=== PATIENT | male | born 1950 | race Caucasian/White ===

== ENCOUNTER 2016-05-20 08:40 | Inpatient (IN) | payer OTHER ==
[~2016-05-20 08:40] MED LIST: Buffered Lidocaine 1% SYR 3ML* 3 ML/SYR SYRINGE INTRADERM ONE
[2016-05-20] MEDS ORDERED: ceFAZolin 2 GM PREMIX (*) 2 GM/50 ML BAG IVPB ONE (09:18)
[2016-05-20] MEDS ORDERED: Famotidine IV* 10 MG/ML 2 ML (20 mg) ONE (11:42)
[2016-05-20] MEDS ORDERED: Midazolam* 1 MG/ML 5 ML VIAL (5 MG) ONE (11:42)
[2016-05-20] MEDS ORDERED: Bupivacaine 0.5% SDV PF* 30 ML VIAL ONE (11:49)
[2016-05-20] MEDS ORDERED: Morphine PF AMP (0.5MG/ML)* 5 MG/10 ML AMP ONE (11:49)
[2016-05-20] MEDS ORDERED: fentaNYL* 50 MCG/ML 2 ML VIAL (100 MCG VIAL) ONE (11:49)
[2016-05-20] MEDS ORDERED: Dexmedetomidine* 200 MCG/2 ML 2 ML VIAL ONE (12:05)
[2016-05-20] MEDS ORDERED: Ketorolac INJ* 30 MG/ML 1 ML VIAL ONE (12:10)
[2016-05-20] MEDS ORDERED: Dexamethasone IV* 4 MG/ML 1 ML (4 MG) ONE (12:10)
[2016-05-20] MEDS ORDERED: Midazolam* 1 MG/ML 2 ML VIAL (2 MG) ONE ×2 (12:11→13:02)
[2016-05-20] MEDS ORDERED: fentaNYL* 50 MCG/ML 2 ML VIAL (100 MCG VIAL) IV PRN (12:41)
[2016-05-20] MEDS ORDERED: DiMENhydriNATE IV* 50 MG/ML VIAL IV PUSH PRN (12:41)
[2016-05-20] MEDS ORDERED: Naloxone* 0.4 MG/ML 1 ML VIAL IV PRN (12:42)
[2016-05-20] MEDS ORDERED: oxyCODONE/Acetamin 5/325 MG* TAB PO PRN ×2 (12:42)
[2016-05-20] MEDS ORDERED: diPHENhydraMINE IV* 50 MG/ML 1 ml VIAL (BENADRYL) IV PRN (12:42)
[2016-05-20] MEDS ORDERED: Ondansetron INJ* 2 MG/ML VIAL IV PRN (12:42)
[2016-05-20] MEDS ORDERED: PROCHLORPERAZINE INJ 5 MG/ML 2 ML VIAL IV PRN (12:42)
[2016-05-20] MEDS ORDERED: Ketorolac INJ* 30 MG/ML 1 ML VIAL IV PRN (12:42)
[2016-05-20] MEDS ORDERED: diPHENhydraMINE PO* 25 MG PO PRN (14:27)
[2016-05-20] MEDS ORDERED: Magnesium Hydroxide LIQ* 30 ML UDC PO PRN (14:27)
[2016-05-20] MEDS ORDERED: Bisacodyl SUPP* 10 MG SUPP PR PRN (14:27)
--- NOTE | 2016-05-20 15:21 | RAD ---
INDICATION: Left total knee replacement COMPARISON: April 22, 2016 TECHNIQUE: Portable AP and lateral views were obtained. FINDINGS: There is left knee arthroplasty. Both femoral and tibial components appear well seated. There is a surgical drain in place. There is a cooling jacket. IMPRESSION: POSTOP LEFT KNEE ARTHROPLASTY. NO FINDINGS OF HARDWARE FAILURE
[2016-05-20] MEDS ORDERED: Nalbuphine* 20 MG/ML 1 ML VIAL ONE (16:25)
[2016-05-20] MEDS: Nalbuphine* 20 MG/ML 1 ML VIAL IV PRN ×2 (16:26→20:04)
[2016-05-20] MEDS: Scopolamine 1.5 mg* PATCH TRANSDERM SCH (17:54)
[2016-05-20] MEDS: Acetaminophen TAB* 325 MG PO SCH ×3 (17:54→22:03)
[2016-05-20] MEDS: ceFAZolin 1 GM in Dextrose (*) 1 GM/50 ML BAG IVPB SCH ×2 (17:57→20:06)
[2016-05-20] MEDS: Metoprolol Succinate XL TAB* 25 MG PO SCH (17:57)
[2016-05-20] MEDS ORDERED: NON FORMULARY MED* (Lisinopril [Lisinopril 2.5 Mg-] 2.5 MG) PO SCH (18:00)
[2016-05-20] MEDS ORDERED: Metoprolol Succinate XL TAB* 25 MG PO SCH (18:00)
[2016-05-20] MEDS ORDERED: Warfarin TAB(*) 6 MG PO ONE (19:30)
--- NOTE | 2016-05-20 21:49 | CONS ---
CONSULTATION REPORT:* ADDENDUM: DATE OF CONSULTATION: 05/20/16 Mr. Brito is a 66-year-old male with history of paroxysmal atrial fibrillation and hypertension who is status post elective knee replacement. Our service was asked to consult in regards to medical management of the above mentioned chronic conditions. For further details of the patient's presentation and plan, please see consultation report dictated by Iesha Black NP, on 05/20/16 with which I agree. [id number]/[facility] #: [id number] [place]
[2016-05-20] MEDS: Docusate CAP* 100 MG PO SCH (22:02)
--- NOTE | 2016-05-20 22:14 | CONS ---
ATTENDING PHYSICIAN ADDENDUM INCLUDED ON THIS REPORT CONSULTATION NOTE: DATE OF CONSULT: 05/20/16 ATTENDING PHYSICIAN: Kenzie Grant MD *(dictated by Iesha Burns NP) PRIMARY CARE PROVIDER: Dr. Gabe Phillip. REQUESTING PHYSICIAN: Fiordaliza Whiteside MD. REASON FOR CONSULT: Co-medical management. HISTORY OF PRESENT ILLNESS: Mr. Brito is a 66-year-old male with a past medical history significant for hypertension, coronary artery disease, mitral valve disorder, paroxysmal atrial fibrillation, non-ischemic cardiomyopathy, obstructive sleep apnea, hyperlipidemia, ectopic atrial bradycardia, and osteoarthritis who presents today for an elective left total knee replacement with Dr. Whiteside. Postoperatively, the patient is doing well. He has been in sinus bradycardia postoperative, with a rate in the 40-60s. He denies any pain , nausea or vomiting. The patient denies any recent cold symptoms, fever, chills, chest discomfort or shortness of breath. The patient states that leading up to his surgery he has been in good state of health except for right knee pain. Hospitalist were asked to assist with co-medical management of this patient during his postoperative period. PAST MEDICAL HISTORY: 1. Hypertension. 2. Coronary artery disease. 3. Mitral valve disorder. 4. Lumbar disk herniations. 5. Nonischemic cardiomyopathy. 6. Paroxysmal atrial fibrillation. 7. Chronic back pain. 8. Kidney stones. 9. Gallstones. 10. Ectopic atrial bradycardia. 11. Hyperlipidemia. 12. Obstructive sleep apnea. PAST SURGICAL HISTORY: 1. Status post left ACL repair in 1982. 2. Status post left ACL reconstruction in 2008. 3. Status post mitral valve replacement and ASD closure in 1998. 4. Status post lumbar diskectomy in 2013. HOME MEDICATIONS: Include: 1. Lisinopril 2.5 mg oral daily at bedtime. 2. Metoprolol succinate 25 mg oral every evening. 3. Vicodin ES 7.5/650 oral every 4 hours as needed for pain. 4. Acetaminophen 325 mg oral as needed for pain. 5. Naproxen 250 mg oral every 8 hours as needed for pain. ALLERGIES: 1. VITAMIN B. 2. NIACIN. FAMILY HISTORY: The patient's father has a history of heart disease, hypertension and CVA. He has a sister with a history of multiple sclerosis. The patient denies any family history of diabetes mellitus or cancer. SOCIAL HISTORY: The patient lives alone. 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 The patient denies tobacco use, although he is a former smoker quitting over 25 years ago. The patient denies recreational drug use. The patient reports drinking 1 to 2 alcoholic beverages daily. The patient's step-daughter, Laura Izquierdo, will be his surrogate decision maker in the event that he is unable to make decisions for himself. REVIEW OF SYSTEMS: I performed a 14-point review of systems. All the pertinent positives and negatives are mentioned in the history of present illness. The remaining review of systems is negative. PHYSICAL EXAMINATION: Vital Signs: Temperature 97.5, heart rate 67, O2 sat 96 % on 3 L via nasal cannula, blood pressure 100/70. General Appearance: The patient is alert and appears to be in no acute distress. HEENT: Normocephalic and atraumatic. Pupils are equal and reactive to light. Extraocular movements are intact. Cardiovascular: Regular rate and rhythm. S1 and S2 present. There was a soft systolic murmur heard best at the apex. Extremities: There is no lower extremity edema. DP and PT pulses are 2+ and symmetric. Respiratory: There is no accessory muscle use and the lungs are clear to auscultation bilaterally. Abdomen: Soft, nontender and nondistended. There are bowel sounds present x4. Musculoskeletal: There is no clubbing or cyanosis noted. The patient exhibits good strength in all extremities. Skin: The patient has a dressing on his left knee that is clean, dry and intact. Neurological: Cranial nerves II through XII are grossly intact. The patient moves all extremities. Psychological: The patient is calm and cooperative. DIAGNOSTIC STUDIES/LAB DATA: Preoperative labs from 05/14/16: Sodium 143, potassium 4.7, chloride 103, CO2 of 27, BUN 19, creatinine 0.90, glucose 87. White blood cell count 5.3, hemoglobin 15.5, hematocrit 45.7, and platelet count 257. EKG preop from 05/11/16 shows a sinus bradycardia with nonspecific ST changes. The patient had a preop chest x-ray on 05/13/16 showing no active cardiopulmonary disease. The patient's LFTs were within normal limits. The patient has a negative urinalysis. A left knee x-ray from today. Radiologist's impression: Postop left knee arthroplasty. No findings of hardware failure. IMPRESSION: Mr. Brito is a 66-year-old male with a past medical history significant for nonischemic cardiomyopathy, hypertension, ectopic atrial bradycardia, paroxysmal atrial fibrillation, nonischemic cardiomyopathy and osteoarthritis who underwent an elective left total knee arthroplasty with Dr. Whiteside. Hospitalists were asked to assist with co-management of this patient during his hospitalization. 1. Status post left total knee arthroplasty. Postop day. Management will be per Orthopedic Surgery. The patient will have pain medication and started on a bowel regime. The patient's hemoglobin and hematocrit will be trended. The patient will have physical therapy and occupational therapy. 2. History of ectopic atrial bradycardia. The patient has intermittently been bradycardic during his stay with heart rates in the 40s to 70s. The patient will be continued on his metoprolol with holding parameters. We will continue to monitor this. 3. Nonischemic cardiomyopathy and history of paroxysmal atrial fibrillation. The patient will be continued on his metoprolol with holding parameters. He was not anticoagulated for his paroxysmal atrial fibrillation prior to surgery. 4. Hypertension. We will continue the patient on his metoprolol and hold his lisinopril now during his perioperative period as his blood pressures are soft. We will resume his lisinopril when his blood pressures are back up. 5. Fluids, electrolytes and nutrition. The patient will be on a regular diet. 6. DVT prophylaxis. The patient will be on warfarin and Lovenox per Orthopedic Surgery. 7. Code status. Full code. 8. Disposition. Disposition per Orthopedic Surgery. TIME SPENT: The time for this consultation was 60 minutes, 30 minutes was spent with the patient discussing medications, past medical history and the events leading up to his arrival and performing a physical examination. The case has been reviewed with the attending, Dr. Grant, who agrees with the plan of care. Reviewed by JAKUB MARRERO 05/21/16 0906 ADDENDUM: DATE OF CONSULTATION: 05/20/16 Mr. Brito is a 66-year-old male with history of paroxysmal atrial fibrillation and hypertension who is status post elective knee replacement. Our service was asked to consult in regards to medical management of the above mentioned chronic conditions. For further details of the patient's presentation and plan, please see consultation report dictated by Iesha Burns NP, on 05/20/16 with which I agree. KENZIE GRANT MD CC: Fiordaliza Whiteside MD; Dr. Phillip * [id number]/[facility] #: [id number]/[facility] #: [id number] [facility]
[2016-05-21] MEDS: Acetaminophen TAB* 325 MG PO SCH (01:08)
--- NOTE | 2016-05-21 03:33 | OP ---
DATE OF OPERATION: 05/20/16 - ROOM #343 DATE OF : 46 SURGEON: Fiordaliza Whiteside MD ASSISTANTS: 1. RENUKA Sims 2. RENUKA Lynn ANESTHESIOLOGIST: Dr. Bonilla. ANESTHESIA: Spinal. PRE-OP DIAGNOSIS: Severe end-stage degenerative osteoarthritis of the left knee joint. POST-OP DIAGNOSIS: Severe end-stage degenerative osteoarthritis of the left knee joint. OPERATIVE PROCEDURE: Left total knee arthroplasty. COMPLICATIONS: None. ESTIMATED BLOOD LOSS: 350 cc. TOURNIQUET TIME: 53 minutes. HARDWARE USED: This is a Jimenez and Nephew cemented total knee arthroplasty hardware with 2 packages of Simplex bone cement. For the femur, a size 7 left Oxinium Legion femoral component. For the baseplate, a size 7 left tibial base plate. For the patella, a 35 mm 3-peg all poly patella. For the insert, a 9- mm size 70 posterior stabilized articular insert. BRIEF HISTORY/INDICATION: Mr. Brito is a 66-year-old gentleman with months of severe left knee pain. He failed conservative treatment with anti- inflammatories, pain medication, intra-articular injections, and physical therapy. Radiographs confirmed [id number] arthritis. Due to continued pain and decreased quality of life, the patient elected to undergo a left total knee arthroplasty. Informed consent was obtained from the patient. He understood the risks of surgery included, but were not limited to bleeding, infection, damage to nearby structures, continued pain, need for further surgery, intraoperative fracture, nerve palsy, hardware failure or loosening, stroke, heart attack, blood clot, and . He wished to proceed. INTRAOPERATIVE FINDINGS: Intraoperatively, the patient was noted to have 7- degree valgus deformity preoperatively. This was corrected to 5 degrees at the end of the case. He had a lateral femoral condylar hypoplasia. He had complete loss of cartilage in the lateral and patellofemoral compartments. DESCRIPTION OF PROCEDURE: Mr. Brito was identified in the preanesthesia unit. His left lower extremity was marked as the correct operative side. Informed consent was signed and placed in the chart. The patient was taken to the operating room and placed under spinal anesthesia without difficulty. Olivarez catheter was placed. Tourniquet was placed on the left thigh. Left lower extremity was prepped and dapped in the usual sterile fashion. Preop time -out was made to correctly identify the patient's side and site. Appropriate perioperative antibiotics were given within 1 hour of incision. Tourniquet was inflated and total tourniquet time for this procedure was 53 minutes. A 12-cm midline incision was made with a 10 blade and carried down to the extensor mechanism. A new 10-blade was used to make a standard medial parapatellar arthrotomy. Patella was subluxed laterally. Electrocautery was used to subperiosteally elevate soft tissue along the superomedial tibia to mid sagittal plane. The knee was flexed up. A drill was used to enter the distal femur. Intramedullary distal femoral cutting guide was pinned into proper position. Hypoplasia of the lateral femoral condyle as noted. Oscillating saw was used to make the appropriate distal femoral cut. Next, the external rotation guide was placed on the distal femur. Femur was sized to a size 7. Size 7 multi-cutting jig was pinned on the distal femur. Oscillating saw was used to make the appropriate Chamfer cuts. All bony fragments were carefully removed. PCL was completely released. The tibia was subluxed anteriorly. Extramedullary tibial cutting guide was placed, was pinned into proper position. Oscillating saw was used to make the appropriate proximal tibial cut. The bone was carefully removed. Knee was brought out into full extension. The spacer block had excellent fit. Good medial and lateral ligamentous balancing. Full extension of the knee. Flexion and extension gaps were well balanced. The knee was flexed up. Lamina management developer was placed both medially and laterally. Any remaining meniscus was removed from the medial and lateral compartments. Curved osteotome was used to remove any osteophytes from the posterior femoral condyles. Next, a size 7 left femoral trial was placed. This was impacted into position on the distal femur and had good fit. The box for the posterior stabilized implant was prepared using a reamer and box cut osteotome. A size 7 tibial trial and 9-mm insert trial were chosen. These were placed and the knee was taken through a range of motion. The knee had full extension to 130 degrees of flexion with good patellofemoral tracking. Patellar was everted. 9-mm of patellar bone and cartilage was carefully removed with an oscillating saw. The patella was sized to a size 35. Three peg holes were drilled through the size 35 guide. A 35 trial patella was placed. The knee was taken through a range of motion and had excellent patellofemoral tracking. All trials were carefully removed. Tibia was subluxed anteriorly and sized to a size 7. Proximal tibia was prepared using a keel punch. All bony cut surfaces were copiously irrigated with sterile saline and dried. The final implants were cemented into place starting with the tibia followed by the femur and last the patella. A 9-mm insert trial was chosen and placed while the knee was brought into full extension. The cement was allowed to fully cure and the tourniquet was turned down at 53 minutes. The knee was copiously irrigated with sterile saline. Once the cement was fully cured, the insert trial was removed. Capsule was checked for any bleeding. Meticulous hemostasis was obtained using electrocautery. Any excess cement was carefully removed. Final insert chosen was a 9-mm posterior stabilized articular insert size 7/8. This was locked into position on the tibial tray without difficulty. Stability of the insert on the tibial tray was checked and rechecked and noted to be stable. Final range of motion was full extension to 130 degrees of flexion. The knee was once again copiously irrigated with sterile saline. The extensor mechanism was closed in an interrupted fashion using #1 Vicryl over a medium Hemovac drain. The rest of the incision was closed in a layered fashion using 0 and 2-0 Vicryl. Skin was closed using running 3-0 nylon suture. Sterile Xeroform, 4x4s, and Webril were used to cover the incision. Ivan wrap and cold pack were placed over this. The patient's anesthesia was reversed without difficulty. He was taken to the PACU in stable condition. Intended weightbearing will be weightbearing as tolerated. Intended DVT prophylaxis will be Coumadin with a Lovenox bridge. [id number]/[facility] #: [id number] [facility]
[2016-05-21] MEDS ORDERED: oxyCODONE TAB* 5 MG TAB PO PRN (03:53)
[2016-05-21] MEDS ORDERED: Ondansetron TAB* 4 MG PO PRN (03:53)
[2016-05-21] MEDS: ceFAZolin 1 GM in Dextrose (*) 1 GM/50 ML BAG IVPB SCH ×2 (03:59→12:07)
[2016-05-21 07:12] LABS: Hematocrit 35 % (42-52); Hemoglobin 11.8 g/dl (14.0-18.0)
[2016-05-21 07:29] LABS: BUN/Creatinine Ratio 28.4 (8-20); Calcium 8.4 mg/dL (8.6-10.3); EGFR African American 121.9 (>60); EGFR Non-African American 94.8 (>60); Potassium 4.2 mmol/L (3.5-5.0)
[2016-05-21] MEDS: Ondansetron INJ* 2 MG/ML VIAL IV PRN (08:05)
[2016-05-21] MEDS: Docusate CAP* 100 MG PO SCH ×2 (09:11→21:00)
[2016-05-21] MEDS: Vitamin THERAPEUTIC TAB PO SCH (09:11)
[2016-05-21] MEDS: OXYMETAZOLINE 0.05% BOTH NARES SCH ×2 (09:13→22:02)
[2016-05-21] MEDS: HYDROcodone/ACETAMIN 5-325 MG* 1 TAB PO PRN ×2 (12:28→17:58)
--- NOTE | 2016-05-21 12:38 | PN ---
Progress Note - Progress Note SOAP: Subjective: [66 year old male s/p L TKA 05/20/2016. Patient reports feeling overall "lowsey " due to mild nausea, fatigue. Pain controlled with agustin medication, howeer patient believes nausea/ foggy head due to pain medication. VSS overnight, H& H stable. No other complaints/ concerns. ] Objective: [GEneral- Resting in chair comfortably, A&O MSK- SUrgical dressing intact, drain intact, no drainage seen on dressing, drain with bloody drainage noted. Drain pulled without complication, minimal pain to patient, none at end of procedure, tolerated well. + dorsi/ plantarflexion b/l, PT 2+ b/l, neg homans sign b/l, sensation intact to light touch B/L. ] Vital Signs Temp 97.5 F 05/21/16 07:08 Pulse 64 05/21/16 07:08 Resp 18 05/21/16 12:28 BP 108/60 05/21/16 07:08 Pulse Ox 95 05/21/16 08:00 Intake & Output 05/20/16 05/21/16 05/21/16 18:59 06:59 18:59 Intake Total 2310 1920 Output Total 50 475 Balance 2260 1445 Weight 205 lb Intake: IV Fluids 1900 990 LR 1900 990 IVPB 110 ABX - CEFAZOLIN 110 Oral 410 820 Output: Olivarez 50 475 Other: # Bowel Movements 0 Laboratory Results - last 24 hr 05/21/16 05/21/16 05/21/16 06:46 06:46 06:46 Hgb 11.8 L Hct 35 L INR (Anticoag Therapy) 1.11 Sodium 135 Potassium 4.2 Chloride 102 Carbon Dioxide 29 Anion Gap 4 BUN 23 Creatinine 0.81 Est GFR ( Amer) 121.9 Est GFR (Non-Af Amer) 94.8 BUN/Creatinine Ratio 28.4 H Glucose 130 H Calcium 8.4 L Assessment: [[66 year old male s/p L TKA ] Plan: [- DVT prophy- continue lovenox, coumadin dosed to 6mg - Continue PT/ OT - Pain medication changed to [place], Ultram ] Active Medications Generic Name Dose Route Start Last Admin Trade Name Freq PRN Reason Stop Dose Admin Acetaminophen/Hydrocodone Bitart 1 tab 05/21/16 09:05 05/21/16 12:28 [place] 5-325 Tab* PO 1 tab Q4H PRN Administration PAIN - MODERATE Bisacodyl 10 mg 05/20/16 14:27 Dulcolax Supp* [place] DAILY PRN constipation Diphenhydramine HCl 25 mg 05/20/16 14:27 Benadryl Po* PO Q6H PRN itching Docusate Sodium 100 mg 05/20/16 21:00 05/21/16 09:11 Colace Cap* PO 100 mg BID LAURI Administration Enoxaparin Sodium 40 mg 05/21/16 15:00 Lovenox(*) SUBCUT Q24H [facility] Lactated Ringer's 1,000 mls @ 100 mls/hr 05/20/16 15:00 05/21/16 05:01 Lactated Ringers 1000 Ml Bag* IV 100 mls/hr PER RATE [facility] Administration Ketorolac Tromethamine 15 mg 05/20/16 12:42 Toradol Inj* IV 05/21/16 12:45 Q6H PRN PAIN Lactulose 30 ml 05/20/16 14:27 Lactulose* PO Q6H PRN constipation Magnesium Hydroxide 30 ml 05/20/16 14:27 Milk Of Magnesia Liq* PO Q6H PRN constipation Metoprolol Succinate 25 mg 05/20/16 18:00 05/20/16 17:57 Toprol Xl Tab* PO Not Given QPM [facility] Morphine Sulfate 5 mg 05/21/16 03:53 Morphine Inj (Syringe)* IV Q2H PRN SEVERE PAIN Multivitamins 1 tab 05/21/16 09:00 05/21/16 09:11 Theragran Tab* PO 1 tab DAILY LAURI Administration Ondansetron HCl 4 mg 05/21/16 03:53 05/21/16 08:05 Zofran Inj* IV 4 mg Q6H PRN Administration nausea Ondansetron HCl 4 mg 05/21/16 03:53 Zofran Tab* PO Q6H PRN NAUSEA Oxymetazoline HCl 3 spray 05/21/16 09:00 05/21/16 09:13 Afrin 0.05% Nasal [place]* BOTH NARES Not Given BID [facility] Pharmacy Profile Note 1 note 05/23/16 13:00 Scopolomine Patch Remove* PATCH OFF 05/23/16 13:01 1300 ONE Scopolamine 1 patch 05/20/16 13:00 05/20/16 17:54 Transderm-Scop 1.5 Mg Patch* TRANSDERM Not Given Q72H [facility] Tramadol HCl 50 mg 05/21/16 09:05 Ultram* PO Q6H PRN PAIN - MILD Warfarin Sodium 6 mg 05/21/16 17:00 Coumadin Tab(*) PO 05/21/16 17:01 ONCE@1700 [facility] Protocol
[2016-05-21] MEDS: Enoxaparin(*) 40 MG/0.4 ML SYR SUBCUT SCH (15:25)
[2016-05-21] MEDS: traMADol TAB* 50 MG PO PRN ×2 (15:46→22:01)
--- NOTE | 2016-05-21 16:04 | PN ---
Subjective Date of Service: 05/21/16 Interval History: Patient seen and examined at bedside. Pt states he is doing well and his pain is controlled. He reports some aching in his left knee. Denies fever, chills, shortness of breath, chest discomfort, N/V/D. Pt has been up and working with Physical Therapy. Family History: Unchanged from Admission Social History: Unchanged from Admission Past Medical History: Unchanged from Admission Objective Active Medications: Acetaminophen/Hydrocodone Bitart ([place] 5-325 Tab*) 1 tab PO Q4H PRN Reason: PAIN - MODERATE Bisacodyl (Dulcolax Supp*) 10 mg [place] DAILY PRN Reason: constipation Diphenhydramine HCl (Benadryl Po*) 25 mg PO Q6H PRN Reason: itching Docusate Sodium (Colace Cap*) 100 mg PO BID LAURI Enoxaparin Sodium (Lovenox(*)) 40 mg SUBCUT Q24H [facility] Lactated Ringer's (Lactated Ringers 1000 Ml Bag*) 1,000 mls @ 100 mls/hr IV PER RATE [facility] Lactulose (Lactulose*) 30 ml PO Q6H PRN Reason: constipation Magnesium Hydroxide (Milk Of Magnesia Liq*) 30 ml PO Q6H PRN Reason: constipation Metoprolol Succinate (Toprol Xl Tab*) 25 mg PO QPM LAURI Morphine Sulfate (Morphine Inj (Syringe)*) 5 mg IV Q2H PRN Reason: SEVERE PAIN Multivitamins (Theragran Tab*) 1 tab PO DAILY [facility] Ondansetron HCl (Zofran Inj*) 4 mg IV Q6H PRN Reason: nausea Ondansetron HCl (Zofran Tab*) 4 mg PO Q6H PRN Reason: NAUSEA Oxymetazoline HCl (Afrin 0.05% Nasal [place]*) 3 spray BOTH NARES BID [facility] Pharmacy Profile Note (Scopolomine Patch Remove*) 1 note PATCH OFF 1300 ONE Scopolamine (Transderm-Scop 1.5 Mg Patch*) 1 patch TRANSDERM Q72H [facility] Tramadol HCl (Ultram*) 50 mg PO Q6H PRN Reason: PAIN - MILD Warfarin Sodium (Coumadin Tab(*)) 6 mg PO ONCE@1700 [facility] Stop: 05/21/16 17:01 Vital Signs 05/20/16 05/20/16 05/20/16 16:15 16:30 16:45 Temperature Pulse Rate 56 46 46 Respiratory 13 14 17 Rate Blood Pressure 106/71 107/70 106/79 (mmHg) O2 Sat by Pulse 96 96 96 Oximetry 05/20/16 05/20/16 05/20/16 16:55 18:04 19:10 Temperature 97.7 F 96.9 F 97.2 F Pulse Rate 48 51 51 Respiratory 18 16 16 Rate Blood Pressure 106/76 123/74 123/77 (mmHg) O2 Sat by Pulse 97 97 94 Oximetry 05/20/16 05/20/16 05/21/16 21:05 22:03 00:03 Temperature 97.4 F Pulse Rate 58 Respiratory 16 20 16 Rate Blood Pressure 131/80 (mmHg) O2 Sat by Pulse 95 Oximetry 05/21/16 05/21/16 05/21/16 03:09 03:11 05:09 Temperature 97.7 F Pulse Rate 72 Respiratory 18 18 18 Rate Blood Pressure 110/62 (mmHg) O2 Sat by Pulse 94 Oximetry 05/21/16 05/21/16 05/21/16 07:08 08:00 12:00 Temperature 97.5 F 97.8 F Pulse Rate 64 64 Respiratory 18 18 18 Rate Blood Pressure 108/60 110/64 (mmHg) O2 Sat by Pulse 95 95 95 Oximetry 05/21/16 05/21/16 05/21/16 12:28 15:21 15:46 Temperature 97.9 F Pulse Rate 92 Respiratory 18 16 18 Rate Blood Pressure 105/60 (mmHg) O2 Sat by Pulse 95 Oximetry Oxygen Devices in Use Now: None Appearance: NAD, sitting up in a chair Eyes: No Scleral Icterus, PERRLA Ears/Nose/Mouth/Throat: NL Teeth, Lips, Gums, Mucous Membranes Moist Neck: NL Appearance and Movements; NL JVP, Trachea Midline Respiratory: Symmetrical Chest Expansion and Respiratory Effort, Clear to Auscultation Cardiovascular: NL Sounds; No Murmurs; No JVD, RRR Abdominal: NL Sounds; No Tenderness; No Distention Extremities: No Edema Skin: - - Dressing to left knee clean, dry and intact Neurological: Alert and Oriented x 3, NL Muscle Strength and Tone Lines/Tubes/Other Access: Clean, Dry and Intact Peripheral IV - site benign Nutrition: Taking PO's Result Diagrams: 05/21/16 06:46 05/21/16 06:46 Assess/Plan/Problems-Billing Assessment: MR. Brito is a 66 yo male with PMH significant for nonischemic cardiomyopathy , HTN, ectopic atrial bradycardia, paroxysmal atrial fibrilation and osteoarthritis who underwent an elective left total knee arthroplasty with Dr. Whiteside. - Patient Problems (1) Status post total left knee replacement Code(s): Z96.652 - PRESENCE OF LEFT ARTIFICIAL KNEE JOINT SNOMED Code(s): 4019263705381 Comment: - Management per Ortho - Trend H/H - Continue PT/OT - Continue pain medication and bowel regime (2) Bradycardia Code(s): R00.1 - BRADYCARDIA, UNSPECIFIED SNOMED Code(s): 24891654 Comment: - History of ectopic atrial bradycardia - Heart rate improving - Continue metoprolol with hold parameters (3) Nonischemic cardiomyopathy Code(s): I42.8 - OTHER CARDIOMYOPATHIES SNOMED Code(s): 77783430 Comment: - Continue metoprolol - Resume Lisinopril once BP improves (4) HTN (hypertension) Code(s): I10 - ESSENTIAL (PRIMARY) HYPERTENSION SNOMED Code(s): 71614660 Comment: - SBP 100-130's - BP continues to be soft, will continue to hold Lisinopril for now - Continue metoprolol with hold parameters (5) Paroxysmal atrial fibrillation Code(s): I48.0 - PAROXYSMAL ATRIAL FIBRILLATION SNOMED Code(s): 611514145 Comment: - Regular rate on exam - Continue metoprolol with holding parameters - Was not on anticoagulation prior to surgery (6) DVT prophylaxis Code(s): JKZ7992 - SNOMED Code(s): 354749806 Comment: - Lovenox and Warfarin per Ortho (7) Full code status Code(s): Z78.9 - OTHER SPECIFIED HEALTH STATUS SNOMED Code(s): 689318685 Status and Disposition: Inpatient. Disposition per Orthopedics.
[2016-05-21] MEDS ORDERED: Warfarin TAB(*) 6 MG PO SCH (17:00)
[2016-05-21] MEDS: Metoprolol Succinate XL TAB* 25 MG PO SCH (17:58)
[2016-05-22] MEDS: HYDROcodone/ACETAMIN 5-325 MG* 1 TAB PO PRN ×6 (03:14→23:32)
[2016-05-22] MEDS: traMADol TAB* 50 MG PO PRN ×3 (06:14→19:31)
[2016-05-22 07:53] LABS: Hematocrit 33 % (42-52); Hemoglobin 11.1 g/dl (14.0-18.0)
[2016-05-22] MEDS: Ondansetron INJ* 2 MG/ML VIAL IV PRN (08:14)
[2016-05-22] MEDS: Morphine INJ* 10 MG/ML 1 ML CARPUJECT IV PRN ×3 (08:15→12:45)
[2016-05-22] MEDS: Vitamin THERAPEUTIC TAB PO SCH (08:32)
[2016-05-22] MEDS: Docusate CAP* 100 MG PO SCH ×2 (08:32→20:28)
[2016-05-22] MEDS: OXYMETAZOLINE 0.05% BOTH NARES SCH ×2 (08:33→20:29)
--- NOTE | 2016-05-22 10:20 | PN ---
Progress Note - Progress Note SOAP: Subjective: [66 year old male s/p L TKA 05/20/2016. Patient reports yesterday pain well controlled, working with PT well, increased activities, today increased pain over knee, only mild improvement of pain with pain medication, needed IV morphine this AM. VSS overnight. ] Objective: [General- mild to moderate pain with movement, well at rest MSK- Incision C/D/I, minimal ecchymosis around incision, full extension, moderate swelling, neg homans sign, + dorsiflexion/ plantarflexion b/l LE's. ] Laboratory Results - last 24 hr 05/22/16 05/22/16 07:35 07:35 Hgb 11.1 L Hct 33 L INR (Anticoag Therapy) 1.25 H Assessment: [66 year old male s/p L TKA 05/20/2016] Plan: - DVT prophylaxis- Coumadin dosing overnight to 8mg, continue lovenox - Continue PT/ OT - Pain medication increased, continue to monitor - ] Vital Signs Temp 98.2 F 05/22/16 07:30 Pulse 69 05/22/16 07:30 Resp 18 05/22/16 09:02 BP 137/82 05/22/16 07:30 Pulse Ox 93 05/22/16 07:56 Intake & Output 05/21/16 05/22/16 05/22/16 18:59 06:59 18:59 Intake Total 1606 460 230 Output Total 600 450 250 Balance 1006 10 -20 Intake: IV Fluids 856 ABX - CEFAZOLIN 55 LR 801 Oral 750 460 230 Output: Urine 600 450 250 Other: Estimated Void Medium # Voids 1 Active Medications Generic Name Dose Route Start Last Admin Trade Name Freq PRN Reason Stop Dose Admin Acetaminophen/Hydrocodone Bitart 1 tab 05/21/16 09:05 05/22/16 07:23 [place] 5-325 Tab* PO 1 tab Q4H PRN Administration PAIN - MODERATE Acetaminophen/Hydrocodone Bitart 2 tab 05/22/16 09:43 [place] 5-325 Tab* PO Q4H PRN PAIN - MODERATE Bisacodyl 10 mg 05/20/16 14:27 Dulcolax Supp* [place] DAILY PRN constipation Diphenhydramine HCl 25 mg 05/20/16 14:27 Benadryl Po* PO Q6H PRN itching Docusate Sodium 100 mg 05/20/16 21:00 05/22/16 08:32 Colace Cap* PO 100 mg BID LAURI Administration Enoxaparin Sodium 40 mg 05/21/16 15:00 05/21/16 15:25 Lovenox(*) SUBCUT 40 mg Q24H LAURI Administration Lactated Ringer's 1,000 mls @ 100 mls/hr 05/20/16 15:00 05/21/16 05:01 Lactated Ringers 1000 Ml Bag* IV 100 mls/hr PER RATE LAURI Administration Lactulose 30 ml 05/20/16 14:27 Lactulose* PO Q6H PRN constipation Magnesium Hydroxide 30 ml 05/20/16 14:27 05/22/16 08:32 Milk Of Magnesia Liq* PO 30 ml Q6H PRN Administration constipation Metoprolol Succinate 25 mg 05/20/16 18:00 05/21/16 17:58 Toprol Xl Tab* PO 25 mg QPM LAURI Administration Morphine Sulfate 5 mg 05/21/16 03:53 05/22/16 08:15 Morphine Inj (Syringe)* IV 5 mg Q2H PRN Administration SEVERE PAIN Multivitamins 1 tab 05/21/16 09:00 05/22/16 08:32 Theragran Tab* PO 1 tab DAILY LAURI Administration Ondansetron HCl 4 mg 05/21/16 03:53 05/22/16 08:14 Zofran Inj* IV 4 mg Q6H PRN Administration nausea Ondansetron HCl 4 mg 05/21/16 03:53 Zofran Tab* PO Q6H PRN NAUSEA Oxymetazoline HCl 3 spray 05/21/16 09:00 05/22/16 08:33 Afrin 0.05% Nasal [place]* BOTH NARES 3 spray BID LAURI Administration Pharmacy Profile Note 1 note 05/23/16 13:00 Scopolomine Patch Remove* PATCH OFF 05/23/16 13:01 1300 ONE Scopolamine 1 patch 05/20/16 13:00 05/20/16 17:54 Transderm-Scop 1.5 Mg Patch* TRANSDERM Not Given Q72H [facility] Tramadol HCl 50 mg 05/21/16 09:05 05/22/16 06:14 Ultram* PO 50 mg Q6H PRN Administration PAIN - MILD Warfarin Sodium 8 mg 05/22/16 17:00 Coumadin Tab(*) PO 05/22/16 17:01 ONCE@1700 ONE Protocol
--- NOTE | 2016-05-22 13:32 | PN ---
Subjective Date of Service: 05/22/16 Interval History: . Patient evaluated at the bedside. Pt reports he has more pain today and thinks he "over did it" with PT yesterday; rates pain 7/7. Has good ROM on knee. Denies CP. No fevers. No Nausea/vomiting. No BM in 4 days? Family History: Unchanged from Admission Social History: Unchanged from Admission Past Medical History: Unchanged from Admission Objective Active Medications: Acetaminophen/Hydrocodone Bitart ([place] 5-325 Tab*) 1 tab PO Q4H PRN PRN Reason: PAIN - MODERATE Last Admin: 05/22/16 07:23 Dose: 1 tab Acetaminophen/Hydrocodone Bitart ([place] 5-325 Tab*) 2 tab PO Q4H PRN PRN Reason: PAIN - MODERATE Last Admin: 05/22/16 11:35 Dose: 2 tab Bisacodyl (Dulcolax Supp*) 10 mg [place] DAILY PRN PRN Reason: constipation Diphenhydramine HCl (Benadryl Po*) 25 mg PO Q6H PRN PRN Reason: itching Docusate Sodium (Colace Cap*) 100 mg PO BID [facility] Last Admin: 05/22/16 08:32 Dose: 100 mg Enoxaparin Sodium (Lovenox(*)) 40 mg SUBCUT Q24H [facility] Last Admin: 05/21/16 15:25 Dose: 40 mg Lactated Ringer's (Lactated Ringers 1000 Ml Bag*) 1,000 mls @ 100 mls/hr IV PER RATE [facility] Last Admin: 05/21/16 05:01 Dose: 100 mls/hr Lactulose (Lactulose*) 30 ml PO Q6H PRN PRN Reason: constipation Magnesium Hydroxide (Milk Of Magnesia Liq*) 30 ml PO Q6H PRN PRN Reason: constipation Last Admin: 05/22/16 08:32 Dose: 30 ml Metoprolol Succinate (Toprol Xl Tab*) 25 mg PO QPM [facility] Last Admin: 05/21/16 17:58 Dose: 25 mg Morphine Sulfate (Morphine Inj (Syringe)*) 5 mg IV Q2H PRN PRN Reason: SEVERE PAIN Last Admin: 05/22/16 10:34 Dose: 5 mg Multivitamins (Theragran Tab*) 1 tab PO DAILY [facility] Last Admin: 05/22/16 08:32 Dose: 1 tab Ondansetron HCl (Zofran Inj*) 4 mg IV Q6H PRN PRN Reason: nausea Last Admin: 05/22/16 08:14 Dose: 4 mg Ondansetron HCl (Zofran Tab*) 4 mg PO Q6H PRN PRN Reason: NAUSEA Oxymetazoline HCl (Afrin 0.05% Nasal [place]*) 3 spray BOTH NARES BID [facility] Last Admin: 05/22/16 08:33 Dose: 3 spray Pharmacy Profile Note (Scopolomine Patch Remove*) 1 note PATCH OFF 1300 ONE Stop: 05/23/16 13:01 Scopolamine (Transderm-Scop 1.5 Mg Patch*) 1 patch TRANSDERM Q72H [facility] Last Admin: 05/20/16 17:54 Dose: Not Given Tramadol HCl (Ultram*) 50 mg PO Q6H PRN PRN Reason: PAIN - MILD Last Admin: 05/22/16 12:41 Dose: 50 mg Warfarin Sodium (Coumadin Tab(*)) 8 mg PO ONCE@1700 ONE PRN Reason: Protocol Stop: 05/22/16 17:01 05/22/16 05/22/16 05/22/16 08:15 09:02 10:34 Temperature Pulse Rate Respiratory 18 18 18 Rate Blood Pressure (mmHg) O2 Sat by Pulse Oximetry 05/22/16 05/22/16 05/22/16 11:27 11:34 11:35 Temperature 98.3 F Pulse Rate 69 Respiratory 17 18 18 Rate Blood Pressure 148/79 (mmHg) O2 Sat by Pulse 95 Oximetry 05/22/16 12:41 Temperature Pulse Rate Respiratory 18 Rate Blood Pressure (mmHg) O2 Sat by Pulse Oximetry Oxygen Devices in Use Now: Nasal Cannula - 2l nc Appearance: 66 yo male sitting up in bed in NAD. A+O x3 Eyes: No Scleral Icterus, PERRLA Ears/Nose/Mouth/Throat: NL Teeth, Lips, Gums, Mucous Membranes Moist Neck: NL Appearance and Movements; NL JVP, Trachea Midline Respiratory: Symmetrical Chest Expansion and Respiratory Effort, Clear to Auscultation Cardiovascular: NL Sounds; No Murmurs; No JVD, RRR, No Edema Abdominal: NL Sounds; No Tenderness; No Distention Lymphatic: No Cervical Adenopathy Extremities: - - right knee with cryo unit attached - right LE mildly edematous , nontender, warm, pink, dry Skin: No Rash or Ulcers Neurological: Alert and Oriented x 3, NL Sensation, NL Gait, NL Muscle Strength and Tone Lines/Tubes/Other Access: Clean, Dry and Intact Peripheral IV Nutrition: Taking PO's Result Diagrams: 05/22/16 07:35 05/21/16 06:46 Assess/Plan/Problems-Billing Assessment: MR. Brito is a 66 yo male with PMH significant for nonischemic cardiomyopathy , HTN, ectopic atrial bradycardia, paroxysmal atrial fibrilation and osteoarthritis who underwent an elective left total knee arthroplasty with Dr. Whiteside. - Patient Problems (1) Status post total left knee replacement Comment: - Management per Ortho - POD#2 - H/H stable - dropped 5gms from pre-op labs - intraopertaive EBL 350ML. Asymptomatic. Continue to monitor - Continue PT/OT - Continue pain medication - increase bowel regimen (2) Bradycardia Comment: - History of ectopic atrial bradycardia - Heart rate improving - Continue metoprolol with hold parameters (3) HTN (hypertension) Comment: - stable - restart Lisinopril, Continue metoprolol with hold parameters (4) Nonischemic cardiomyopathy Comment: - Continue metoprolol, Resume Lisinopril (5) Paroxysmal atrial fibrillation SNOMED Code(s): 450688494 Comment: - Regular rate on exam - Continue metoprolol with holding parameters - Was not on anticoagulation prior to surgery - plan for lovenox to coumadin for knee (6) DVT prophylaxis Comment: - Lovenox and Warfarin per Ortho (7) Full code status Status and Disposition: Inpatient. Disposition per Orthopedics.
[2016-05-22] MEDS: Enoxaparin(*) 40 MG/0.4 ML SYR SUBCUT SCH (14:50)
[2016-05-22] MEDS ORDERED: Warfarin TAB(*) 4 MG PO ONE (17:00)
[2016-05-22] MEDS: Metoprolol Succinate XL TAB* 25 MG PO SCH (17:09)
[2016-05-22] MEDS: Polyethylene Glycol 3350* 17 GM PACKET PO SCH (20:28)
[2016-05-23] MEDS: HYDROcodone/ACETAMIN 5-325 MG* 1 TAB PO PRN ×2 (03:28→07:42)
[2016-05-23] MEDS: traMADol TAB* 50 MG PO PRN (03:28)
[2016-05-23] MEDS: Polyethylene Glycol 3350* 17 GM PACKET PO SCH (07:43)
[2016-05-23 07:55] VITALS: BP 122/82
[2016-05-23 08:15] LABS: Hematocrit 35 % (42-52); Hemoglobin 11.7 g/dl (14.0-18.0); Mean Corpuscular HGB Conc 34 g/dl (31-36); Mean Corpuscular Hemoglobin 30 pg (27-31); Mean Corpuscular Volume 90 fL (80-94); Mean Platelet Volume 9 um3 (7.4-10.4); Red Blood Count 3.84 10^6/ul (4.0-5.4); Red Cell Distribution Width 13 % (10.5-15); White Blood Count 7.9 10^3/ul (3.5-10.8)
[2016-05-23 08:24] LABS: BUN/Creatinine Ratio 15.9 (8-20); Calcium 8.8 mg/dL (8.6-10.3); EGFR African American 120.2 (>60); EGFR Non-African American 93.4 (>60); Potassium 3.8 mmol/L (3.5-5.0)
[2016-05-23] MEDS ORDERED: Lisinopril TAB* 5 MG PO SCH (09:00)
[2016-05-23] MEDS: OXYMETAZOLINE 0.05% BOTH NARES SCH (09:15)
[2016-05-23] MEDS: Docusate CAP* 100 MG PO SCH (09:15)
[2016-05-23] MEDS: Vitamin THERAPEUTIC TAB PO SCH (09:16)
--- NOTE | 2016-05-23 10:27 | PN ---
Progress Note - Progress Note SOAP: Subjective: [66 year old male s/p L TKA 05/20/[address] Whiteside. Patient pain better controlled today, ambulating well, worked well with PT this AM, eager for D/C. VSS overnight. ] Objective: [General- Well appearing, NAD AO MSK- Incision d/c/i, no erythema noted, minimal ecchymosis. Sutures intact, minimal tenderness to palpation. Minimal swelling, Neg homans b/l, PT 2+ b/l, sensation intact. Laboratory Results - last 24 hr 05/23/16 05/23/16 05/23/16 07:42 07:42 07:42 WBC 7.9 RBC 3.84 L Hgb 11.7 L Hct 35 L MCV 90 MCH 30 MCHC 34 RDW 13 Plt Count 187 MPV 9 Neut % (Auto) 69.0 Lymph % (Auto) 9.6 L [place] % (Auto) 14.9 H Eos % (Auto) 5.8 Baso % (Auto) 0.7 Absolute Neuts (auto) 5.4 Absolute Lymphs (auto) 0.8 L Absolute Monos (auto) 1.2 H Absolute Eos (auto) 0.5 Absolute Basos (auto) 0.1 Absolute Nucleated RBC 0 Nucleated RBC % 0 INR (Anticoag Therapy) 1.63 H Sodium 136 Potassium 3.8 Chloride 100 L Carbon Dioxide 32 Anion Gap 4 BUN 13 Creatinine 0.82 Est GFR ( Amer) 120.2 Est GFR (Non-Af Amer) 93.4 BUN/Creatinine Ratio 15.9 Glucose 96 Calcium 8.8 Vital Signs Temp 98.1 F 05/23/16 07:36 Pulse 64 05/23/16 07:36 Resp 18 05/23/16 09:21 BP 122/82 05/23/16 07:36 Pulse Ox 98 05/23/16 07:55 Intake & Output 05/22/16 05/23/16 05/23/16 18:59 06:59 18:59 Intake Total 470 3300 320 Output Total 1050 1970 Balance -580 1330 320 Intake: Oral 470 3300 320 Output: Urine 1050 1970 ] Assessment: [66 year old male s/p L TKA 05/20/[address] Whiteside.] Plan: [- DVT prophyl- Continue lovenox today, coumadin at home - Continue PT/ OT - Continue current pain regimen. - FOllow up with Dr. Whiteside within 10-14 days. Active Medications Generic Name Dose Route Start Last Admin Trade Name Freq PRN Reason Stop Dose Admin Acetaminophen/Hydrocodone Bitart 1 tab 05/21/16 09:05 05/22/16 07:23 [place] 5-325 Tab* PO 1 tab Q4H PRN Administration PAIN - MODERATE Acetaminophen/Hydrocodone Bitart 2 tab 05/22/16 09:43 05/23/16 07:42 [place] 5-325 Tab* PO 2 tab Q4H PRN Administration PAIN - MODERATE Bisacodyl 10 mg 05/20/16 14:27 Dulcolax Supp* [place] DAILY PRN constipation Diphenhydramine HCl 25 mg 05/20/16 14:27 Benadryl Po* PO Q6H PRN itching Docusate Sodium 100 mg 05/20/16 21:00 05/23/16 09:15 Colace Cap* PO Not Given BID LAURI Enoxaparin Sodium 40 mg 05/21/16 15:00 05/22/16 14:50 Lovenox(*) SUBCUT 40 mg Q24H LAURI Administration Lactulose 30 ml 05/20/16 14:27 Lactulose* PO Q6H PRN constipation Lisinopril 2.5 mg 05/23/16 09:00 05/23/16 09:15 Prinivil Tab* PO Not Given DAILY LAURI Magnesium Hydroxide 30 ml 05/20/16 14:27 05/22/16 08:32 Milk Of Magnesia Liq* PO 30 ml Q6H PRN Administration constipation Metoprolol Succinate 25 mg 05/20/16 18:00 05/22/16 17:09 Toprol Xl Tab* PO 25 mg QPM LAURI Administration Morphine Sulfate 5 mg 05/21/16 03:53 05/22/16 12:45 Morphine Inj (Syringe)* IV 5 mg Q2H PRN Administration SEVERE PAIN Multivitamins 1 tab 05/21/16 09:00 05/23/16 09:16 Theragran Tab* PO Not Given DAILY LAURI Ondansetron HCl 4 mg 05/21/16 03:53 05/22/16 08:14 Zofran Inj* IV 4 mg Q6H PRN Administration nausea Ondansetron HCl 4 mg 05/21/16 03:53 Zofran Tab* PO Q6H PRN NAUSEA Oxymetazoline HCl 3 spray 05/21/16 09:00 05/23/16 09:15 Afrin 0.05% Nasal [place]* BOTH NARES Not Given BID [facility] Pharmacy Profile Note 1 note 05/23/16 13:00 Scopolomine Patch Remove* PATCH OFF 05/23/16 13:01 1300 ONE Polyethylene Glycol/Electrolytes 17 gm 05/22/16 21:00 05/23/16 07:43 Miralax* PO 17 gm 0800,2100 LAURI Administration Scopolamine 1 patch 05/20/16 13:00 05/20/16 17:54 Transderm-Scop 1.5 Mg Patch* TRANSDERM Not Given Q72H LAURI Tramadol HCl 50 mg 05/21/16 09:05 05/23/16 03:28 Ultram* PO 50 mg Q6H PRN Administration PAIN - MILD ]
[2016-05-23] MEDS: Scopolamine 1.5 mg* PATCH TRANSDERM SCH (11:07)
[2016-05-23] MEDS: Enoxaparin(*) 40 MG/0.4 ML SYR SUBCUT SCH (11:11)
[2016-05-23] MEDS ORDERED: Scopolamine PATCH Remove* 1 NOTE MISC PATCH OFF ONE (13:00)
--- NOTE | 2016-05-24 02:22 | DS ---
DISCHARGE SUMMARY: DATE OF ADMISSION: 05/20/16 DATE OF DISCHARGE: 05/23/16 CHIEF COMPLAINT: 1. Left knee end-stage osteoarthritis. 2. Hypertension. 3. Coronary artery disease. 4. Mitral valve disorder. 5. Lumbar disk herniation. 6. Cardiomyopathy. 7. Atrial fibrillation, paroxysmal. 8. Chronic back pain. 9. Chronic knee pain. DISCHARGE DIAGNOSES: 1. Status post left knee replacement. 2. Hypertension. 3. Coronary artery disease. 4. Mitral valve disorder. 5. Lumbar disk herniation. 6. Cardiomyopathy. 7. Atrial fibrillation, paroxysmal. 8. Chronic back pain. 9. Chronic knee pain. PROCEDURE: Left total knee arthroplasty. CONSULTATIONS: 1. Physical Therapy. 2. Occupational Therapy. 3. Medicine consult. BRIEF HISTORY: Mr. Brito is a very pleasant 66-year-old gentleman with severe end-stage degenerative osteoarthritis of the left knee who failed conservative treatment and has elected to undergo a left total knee arthroplasty on 05/20/[address] Fiordaliza Whiteside. HOSPITAL COURSE: Ms. Brito was admitted to the [facility] on 05/20, where he underwent an uncomplicated left total knee replacement. Postoperatively, he recovered on the surgical short-stay unit. On postoperative day 1, his [place] was removed and he was able to urinate on his own without difficulty. He was advanced to a regular diet and his pain was controlled with p.o. [place] and Ultram. He was restarted on his home medication. His labs and vital signs remained stable. He was able to bear weight as tolerated on the left lower extremity. He advanced appropriately with physical therapy and occupational therapy. His DVT prophylaxis was managed with Lovenox and Coumadin. By postoperative 3, he was orthopedically and medically stable for discharge home with home services. PHYSICAL EXAMINATION: General: Well-appearing, in no acute distress. Alert and oriented x3. Vital Signs: Temperature 98.1, pulse 64, respirations 18, blood pressure 122/82, pulse oxygenation 98% on room air. Examination of the left lower extremity demonstrates a surgical incision on the left knee, which is intact benign without erythema, drainage, or physical signs of infection. Negative Homans' sign bilateral, minimal swelling of the left knee. Posterior tibial pulse is 2+ bilaterally. Sensation grossly intact to bilateral lower extremities. Positive ankle dorsiflexion and plantarflexion. LABORATORY DATA: On the date of discharge, H and H of 11.7 and 35, INR of 1.63. DISCHARGE MEDICATIONS: 1. Colace 100 mg p.o. b.i.d. 2. [place] 5/325 one to two tablets q.4 hours p.r.n. p.o. 3. Metoprolol ER 25 mg p.o. q.p.m. 4. Tramadol 50 mg p.o. q.6 hours p.r.n. 5. Lisinopril 2.5 mg p.o. q.p.m. 6. Coumadin 1 to 3 tablets p.o. daily at 5 p.m. per physician's instructions. CONDITION ON DISCHARGE: Stable. DISCHARGE INSTRUCTIONS: Mr. Brito is a very pleasant 66-year-old gentleman on postoperative day 3, status post left total knee arthroplasty, which is uncomplicated. He is orthopedically and medically stable for discharge to go home with home services. His labs and vital signs are stable. He will restart his home medications. He will take 6 mg of Coumadin tonight, 6 mg and will have an INR check on the as Tuesday is a holiday. He will remain weight-bearing as tolerated on the left lower extremity. He will have home services and home physical therapy twice a week. He will take Ultram and [place] as needed for pain control. He will take Colace up to 3 times a day as for constipation. He will follow up with Dr. Whiteside in approximately 10 to 14 days for incision check and suture removal. He was instructed to go immediately to the ER should he develop chest pain or shortness of breath, should he develop fever, increasing pain or redness around the incision site, he is to call [place] [id number]/[facility] #: [id number] [place]
== END 2016-05-23 12:10 | disposition home health service (06) | DRG 470 ==
LOC: AA 08:40 → SSU 14:27
PROVIDERS: ADMIT Orthopaedic Surgery Adult Reconstructive Orthopaedic Surgery; ATTEND Orthopaedic Surgery Adult Reconstructive Orthopaedic Surgery
PROC: 0SRD0J9 Replacement of Left Knee Joint with Synthetic Substitute, Cemented, Open Approach (ICD-10-PCS; principal; 2016-05-20 12:00)
DX: M17.32 Unilateral post-traumatic osteoarthritis, left knee (principal); I42.8 Other cardiomyopathies; I48.0 Paroxysmal atrial fibrillation; R00.1 Bradycardia, unspecified; I10 Essential (primary) hypertension; I25.10 Atherosclerotic heart disease of native coronary artery without angina pectoris; G89.29 Other chronic pain; M54.9 Dorsalgia, unspecified; E78.5 Hyperlipidemia, unspecified; M51.26 Other intervertebral disc displacement, lumbar region; I05.9 Rheumatic mitral valve disease, unspecified; Z82.49 Family history of ischemic heart disease and other diseases of the circulatory system; Z82.0 Family history of epilepsy and other diseases of the nervous system; Z82.3 Family history of stroke; Z72.89 Other problems related to lifestyle; Z87.442 Personal history of urinary calculi; Z87.891 Personal history of nicotine dependence; Z88.8 Allergy status to other drugs, medicaments and biological substances; Z79.01 Long term (current) use of anticoagulants
CPT/HCPCS: 36415; 80048; 85014; 85018; 85025; 85610; 88305; 88311; A9270-GY; C1776; J0690; J1100; J1650; J1885; J2250; J2270; J2300; J2405; J3010

== ENCOUNTER 2016-05-29 16:19 | Observation (INO) | payer OTHER ==
[2016-05-29] MEDS ORDERED: NS 0.9% 1000 ML* 1,000 ML IV ONE (16:57)
--- NOTE | 2016-05-29 17:10 | RAD ---
INDICATION: Chest pain COMPARISON: May 13, 2016 TECHNIQUE: An AP portable view obtained at 1605 hours is submitted. FINDINGS: Bones/Soft Tissues: There are no acute bony findings. There is sternotomy Cardiomediastinal: The cardiomediastinal silhouette is normal. Lungs: There are no infiltrates. There is mild hyperinflation. Pleura: There are no pleural effusions. Other: None IMPRESSION: NO ACTIVE DISEASE.
[2016-05-29 17:34] LABS: Hematocrit 39 % (42-52); Mean Corpuscular HGB Conc 33 g/dl (31-36); Mean Corpuscular Hemoglobin 30 pg (27-31); Mean Corpuscular Volume 90 fL (80-94); Mean Platelet Volume 8 um3 (7.4-10.4); Red Blood Count 4.32 10^6/ul (4.0-5.4); Red Cell Distribution Width 13 % (10.5-15); White Blood Count 10.6 10^3/ul (3.5-10.8)
[2016-05-29 17:48] LABS: Albumin 4.2 g/dL (3.2-5.2); BUN/Creatinine Ratio 19.4 (8-20); Calcium 9.7 mg/dL (8.6-10.3); EGFR African American 97.8 (>60); EGFR Non-African American 76.1 (>60); Globulin 2.8 g/dL (2-4); Magnesium 1.8 mg/dL (1.9-2.7); Potassium 3.9 mmol/L (3.5-5.0)
[2016-05-29 17:49] LABS: Troponin I 0.01 ng/mL (<0.04)
[2016-05-29] MEDS ORDERED: Iohexol 350* (CONTRAST) 500 ML MDV IV ONE (17:56)
--- NOTE | 2016-05-29 18:49 | RAD ---
INDICATION: Chest and abdominal pain COMPARISON: CT abdomen pelvis March 04, 2016 TECHNIQUE: Axial source images were obtained from the thoracic inlet to the symphysis pubis following administration of intravenous contrast only. 100 mL Omnipaque 350 was utilized. Coronal and sagittal reconstructed images were acquired. CHEST FINDINGS: Neck/thyroid: The visualized neck to include the thyroid appear normal. Chest wall: There are no acute abnormalities of the bony thorax or chest wall. There is no supraclavicular, infraclavicular, or axillary lymphadenopathy. Lungs : There are no pulmonary parenchymal masses or infiltrates. There is minimal atelectasis or scarring the left lung base. The pulmonary interstitium appears normal. There are no endobronchial lesions. Cardiomediastinal structures: The heart is normal in size. There is no pericardial effusion. There is no evidence of aortic aneurysm or dissection. 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 There is no CT evidence of acute pulmonary embolic disease. There is no mediastinal or hilar adenopathy. The esophagus appears normal other than mild extrinsic mass effect produced by the aberrant right subclavian artery. Pleura : There are no pleural-based masses or effusions. ABDOMINAL/PELVIC FINDINGS: Liver: The liver is normal in size. There are no masses. There is no ductal dilatation. Gallbladder: Cholelithiasis, unchanged. Spleen: The spleen is normal in size. There are no masses identified on early arterial phase enhanced imaging. Pancreas: There is no evidence of pancreatic mass or ductal dilatation. Adrenal glands: There is no evidence of adrenal mass. Kidneys: The kidneys are normal in size and position. There are prompt nephrograms and there is prompt excretion bilaterally. There are no new renal parenchymal masses. There is a 4.7 cm midpole left renal cyst. There is no evidence of nephrolithiasis. Adenopathy: There is no evidence of adenopathy by size criteria. Fluid collections: There are no free or localized fluid collections. Vessels:The aorta and IVC appear normal. There are multiple right renal arteries. GI tract: The GI tract is limited as no oral contrast was administered. There are no acute CT abdomen massive the upper lower GI tract. There are scattered diverticula. The appendix is normal. Pelvic organs: The prostate is enlarged. Bladder: There are no bladder masses. Abdominal and pelvic soft tissues: The extraperitoneal abdominal and pelvic soft tissues appear normal.. Osseous structures: There are no acute osseous findings. IMPRESSION: 1. No CT evidence of aortic aneurysm or dissection. 2. No CT evidence of acute pulmonary embolic disease. 3. Cholelithiasis, unchanged. 4. Left renal cyst, unchanged. 5. Scattered diverticula, unchanged. No CT evidence of diverticulitis. 6. Prostatic hypertrophy.
--- NOTE | 2016-05-29 19:27 | ED ---
Anthony Black Michael, scribed for Felecia Ortiz MD on 05/29/16 at 1713 . Palpitations / Dysrhythmia - HPI Summary HPI Summary: 66 y/o male comes to the ED presenting with palpitations that are described as "pulsing and burning sensation" starting from the chest and radiating to the abd. The pt reports he woke up one week ago with the chest sensation, and it has occurred intermittently for the past week. He also notes that his heart rate would not drop lower than 120 beats per, increased fatigue within the last week, and diaphoresis. The pt's history is significant for a knee replacement by Dr. Whiteside recently. He is prescribed and takes one tab of Coumadin. The PMHx is significant for a valve repair 16 years ago and sleep apnea. - History of Current Complaint Chief Complaint: EDDysrhythmPalp Time Seen by Provider: 05/29/16 16:40 Hx Obtained From: Patient, Medical Records Onset/Duration: Sudden Onset Timing: Intermittent Episodes Lasting: Severity Initially: Moderate Severity Currently: Moderate Aggravating: Nothing Associated Signs & Symptoms: Diaphoresis - fatigue. palpitations. - Allergy/Home Medications Allergies/Adverse Reactions: Allergies Allergy/AdvReac Type Severity Reaction Status Date / Time Hydrocodone Allergy FEEL Verified 05/29/16 16:23 [From Hydrocodone "YUCKY", W/Acetaminophen] DOES NOT FEEL IT WORKS Niacin Allergy Rash Verified 05/29/16 16:23 ENVIRONMENTAL Allergy CONGESTION, Uncoded 05/29/16 16:23 COUGH PMH/Surg Hx/FS Hx/Imm Hx Endocrine/Hematology History: Denies: Hx Diabetes Cardiovascular History: Reports: Hx Hypertension, Hx Valvular Heart Disease - MITRAL VALVE REPAIRED 1998 Denies: Hx Atrial Fibrillation, Hx Pacemaker/ICD Respiratory History: Reports: Hx Sleep Apnea - MILD, NO CPAP OR BIPAP GI History: Reports: Hx Irritable Bowel, Hx Ulcer - HX OF YEARS AGO History: Reports: Hx Kidney Stones - 03/2016 Denies: Hx Renal Disease Musculoskeletal History: Reports: Hx Arthritis - BACK Denies: Hx Scoliosis Sensory History: Reports: Hx Contacts or Glasses - GLASSES Denies: Hx Hearing Aid Opthamlomology History: Reports: Hx Contacts or Glasses - GLASSES Neurological History: Reports: Hx Migraine - OCCASIONALLY, Hx Seizures - PETIT MAL - MOSTLY VERTIGO, LAST ONE LAST WEEK ([place]) Denies: Hx Headaches, Other Neuro Impairments/Disorders Psychiatric History: Denies: Hx Panic Disorder - Surgical History Surgery Procedure, Year, and Place: 1998-MITRAL VALVE REPAIR-CLIPS ON BREAST BONE. 2010-ACL REPAIR LEFT KNEE. 2013 LSP SURGERY. LEFT KNEE TRIMMED CARTILAGE 1987 Hx Anesthesia Reactions: No Infectious Disease History: No Infectious Disease History: Denies: Traveled Outside the [place] in Last 30 Days - Family History Known Family History: Negative: Cardiac Disease, Diabetes - Social History Occupation: Employed Full-time Lives: Alone Alcohol Use: Weekly Alcohol Amount: 2-4/WEEK Substance Use Type: Reports: None Smoking Status (MU): Never Smoked Tobacco Type: Cigarettes Amount Used/How Often: 1 PACK PER WEEK FOR ABOUT 5-6 YEARS Length of Time of Smoking/Using Tobacco: 5-6 YEARS Have You Smoked in the Last Year: No Review of Systems Positive: Fatigue, Skin Diaphoresis. Negative: Fever Positive: Palpitations All Other Systems Reviewed And Are Negative: Yes Physical Exam - Summary Physical Exam Summary: Intact stitches, dry, clean and no erythema of the surgical sight-left knee. Triage Information Reviewed: Yes Vital Signs On Initial Exam: Initial Vitals Temp Pulse Resp BP Pulse Ox 98.2 F 76 16 143/65 100 05/29/16 16:24 05/29/16 16:24 05/29/16 16:24 05/29/16 16:24 05/29/16 16:24 Vital Signs Reviewed: Yes Appearance: Positive: Well-Appearing, No Pain Distress Skin: Positive: Warm, Skin Color Reflects Adequate Perfusion, Dry Eyes: Positive: EOMI, JASON ENT: Positive: Pharynx normal, TMs normal Neck: Positive: Supple, Nontender Respiratory/Lung Sounds: Positive: Clear to Auscultation, Breath Sounds Present. Negative: Rales, Rhonchi, Wheezes Cardiovascular: Positive: RRR, Other - no gallops. Negative: Murmur, Rub Abdomen Description: Positive: Nontender, Soft, Other: - no rebound. Negative: Distended, Guarding Bowel Sounds: Positive: Present Musculoskeletal: Positive: Strength/ROM Intact. Negative: Edema Left, Edema Right Neurological: Positive: Sensory/Motor Intact, Alert, Oriented to Person Place, Time, CN Intact II-III Psychiatric: Positive: Affect/Mood Appropriate Diagnostics - Vital Signs Vital Signs Temp Pulse Resp BP Pulse Ox 05/29/16 16:24 98.2 F 76 16 143/65 100 - Laboratory Lab Results: Lab Results 05/29/16 05/29/16 05/29/16 Range/Units 17:25 17:25 17:25 WBC 10.6 (3.5-10.8) 10^3/ul RBC 4.32 (4.0-5.4) 10^6/ul Hgb 13.0 L (14.0-18.0) g/dl Hct 39 L (42-52) % MCV 90 (80-94) fL MCH 30 (27-31) pg MCHC 33 (31-36) g/dl RDW 13 (10.5-15) % Plt Count 403 (150-450) 10^3/ul MPV 8 (7.4-10.4) um3 Neut % (Auto) 78.7 (38-83) % Lymph % (Auto) 8.0 L (25-47) % Archuleta % (Auto) 11.1 H (1-9) % Eos % (Auto) 1.6 (0-6) % Baso % (Auto) 0.6 (0-2) % Absolute Neuts (auto) 8.4 H (1.5-7.7) 10^3/ul Absolute Lymphs (auto) 0.9 L (1.0-4.8) 10^3/ul Absolute Monos (auto) 1.2 H (0-0.8) 10^3/ul Absolute Eos (auto) 0.2 (0-0.6) 10^3/ul Absolute Basos (auto) 0.1 (0-0.2) 10^3/ul Absolute Nucleated RBC 0 10^3/ul Nucleated RBC % 0 Sodium 135 (133-145) mmol/L Potassium 3.9 (3.5-5.0) mmol/L Chloride 101 (101-111) mmol/L Carbon Dioxide 27 (22-32) mmol/L Anion Gap 7 (2-11) mmol/L BUN 19 (6-24) mg/dL Creatinine 0.98 (0.67-1.17) mg/dL Est GFR ( Amer) 97.8 (>60) Est GFR (Non-Af Amer) 76.1 (>60) BUN/Creatinine Ratio 19.4 (8-20) Glucose 110 H (70-100) mg/dL Lactic Acid 1.0 (0.5-2.0) mmol/L Calcium 9.7 (8.6-10.3) mg/dL Magnesium 1.8 L (1.9-2.7) mg/dL Total Bilirubin 1.00 (0.2-1.0) mg/dL AST 41 H (13-39) U/L ALT 59 H (7-52) U/L Alkaline Phosphatase 170 H (34-104) U/L Troponin I 0.01 (<0.04) ng/mL Total Protein 7.0 (6.4-8.9) g/dL Albumin 4.2 (3.2-5.2) g/dL Globulin 2.8 (2-4) g/dL Albumin/Globulin Ratio 1.5 (1-3) Lipase 38 (11.0-82.0) U/L Result Diagrams: 05/29/16 17:25 05/29/16 17:25 Lab Statement: Any lab studies that have been ordered have been reviewed, and results considered in the medical decision making process. - Radiology CXR Xray Interpretation: No Acute Changes Radiology Interpretation Completed By: Radiologist - CT CTA Chest/Abd/Pel CT Interpretation: Positive (See Comments) - 1. No CT evidence of aortic aneurysm or dissection. 2. No CT evidence of acute pulmonary embolic disease. 3. Cholelithiasis, unchanged. 4. Left renal cyst, unchanged. 5. Scattered diverticula, unchanged. No CT evidence of diverticulitis. 6. Prostatic hypertrophy. CT Interpretation Completed By: Radiologist - EKG EK EKG Rhythm: Sinus Rhythm EKG Comparison: Other - Comparted to EKG on 06/16/06: LBBB. New PVCs and anterior lateral Qs. Course/Dx - Course Course Of Treatment: Consulted Dr. Yepez at 1900 and pt is accepted as admission. given change in ekg from 10 years ago with frequent pvcs pt will be seen by medicine - Diagnoses Provider Diagnoses: Chest pain Discharge - Discharge Plan Condition: Stable Disposition: ADMITTED TO [facility] Referrals: Gabe Phillip MD [Primary Care Provider] - The documentation as recorded by the Anthony matta Michael accurately reflects the service I personally performed and the decisions made by me, Felecia Ortiz MD.
[2016-05-29] MEDS ORDERED: Acetaminophen TAB* 325 MG PO PRN (19:36)
[2016-05-29] MEDS ORDERED: Magnesium Sulfate 2 GM IV* 2 GM/50 ML BAG IVPB ONE (19:37)
[2016-05-29] MEDS ORDERED: Potassium Chlor TAB* 20 MEQ TAB.ER PO ONE (19:38)
[2016-05-29] MEDS ORDERED: traMADol TAB* 50 MG PO PRN (20:02)
[2016-05-29] MEDS ORDERED: HYDROcodone/ACETAMIN 5-325 MG* 1 TAB PO PRN ×2 (20:02)
--- NOTE | 2016-05-29 22:48 | HP ---
HOSPITAL MEDICINE HISTORY AND PHYSICAL: DATE OF ADMISSION: 05/29/16 PRIMARY CARE PHYSICIAN: Dr. Phillip. KILN SETTER: Dr. Marcial. ATTENDING PHYSICIAN: Dr. Joe Yepez *(dictation provided by Tracy Talavera NP) CHIEF COMPLAINT: Tingling, burning sensation in chest with palpitations. HISTORY OF PRESENT ILLNESS: Mr. Brito is a 66-year-old male with a past medical history of hypertension, atrial fibrillation, and mitral valve repair as well as known cardiomyopathy and obstructive sleep apnea, who presents today to the hospital with concerns for burning, tingling sensation in his chest as well as palpitations. Mr. Brito had left total knee arthroplasty on . He recovered from that well and discharged to home on 05/23/16. He states that that morning when he awoke, he had strange sensation of feeling sick to his stomach, having tingling and burning in the middle of his chest with profuse sweating. He recovered from that after a short period. He states that he was feeling better during the day; however, at on awakening from sleep over the past fee days, he has continued to have this symptom of tingling and burning in his middle chest intermittently. There has been no further sweating. No further nausea. He states that "it feels like a live wire going down the center of my chest." He has a home oximeter and blood pressure monitor and he took his pulse oximeter to show his heart rate being as high as 100 to 120 at home while at rest. He also noted that at one point after one of the episodes of the tingling and burning in the chest, his heart rate was in the 40s and his blood pressure was 86/67. During this episode, he was feeling palpitations. He also notes that he has increased fatigue with exercise and physical therapy. He denies any other complaints of cough, fever, nausea, abdominal pain. He states he has been eating and drinking normally. Having normal formed bowel movements. In the emergency room, Mr. Brito was found to have a troponin that was 0.00. His magnesium was 1.8, his potassium is 3.9. He did have a chest x-ray, which showed no acute process as well as a chest, abdomen, pelvis CTA which showed no acute process. His EKG shows concern for change in R-waves in the anterior leads. Based on Mr. Brito's presentation with chest pain and palpitations, Hospital Medicine was called regarding admission. PAST MEDICAL HISTORY: 1. Atrial fibrillation. 2. Hypertension. 3. Mitral valve repair in 1999. 4. Lumbar disk herniation. 5. Cardiomyopathy, unknown ejection fraction. 6. Back pain. 7. Knee pain. 8. Left knee total arthroplasty, 05/20/16. 9. Obstructive sleep apnea, not on home CPAP. MEDICATIONS: 1. Colace 100 mg p.o. b.i.d. 2. Lisinopril 2.5 mg p.o. q.p.m. 3. Hydrocodone/acetaminophen 5/325 mg 2 tablets p.o. q.4 hours p.r.n. 4. Metoprolol succinate 25 mg p.o. q.p.m. 5. Warfarin 2 mg p.o. daily. 6. Tramadol 50 mg p.o. q.6 hours. ALLERGIES: To HYDROCODONE and NIACIN, although the patient is on hydrocodone. FAMILY HISTORY: The patient reports his dad related to stroke and heart attack. Mom of old age. His sister had multiple sclerosis. SOCIAL HISTORY: The patient states he quit smoking 25 years ago. He drinks 2 beers or less a day. He denies any drug use. He states that his daughter, Corry, is his healthcare proxy. REVIEW OF SYSTEMS: A 14-point review of systems was completed with Mr. Brito and all those not mentioned above are negative. PHYSICAL EXAMINATION GENERAL: Mr. Brito is sitting in the bed. He is in no acute distress, calm, and cooperative with my examination. VITAL SIGNS: Temperature 98.2, pulse rate 76, respiratory rate 16, O2 saturation 100% on room air, and blood pressure 143/65. LUNGS: Clear to auscultation bilaterally with no accessory muscle use and good aeration. HEART: S1, S2. No murmur, rub, or gallop, and regular. ABDOMEN: Soft, nontender with bowel sounds positive x4. EXTREMITIES: No cyanosis or edema. NEURO: He is alert and oriented x3. He moves all extremities equally. There is no facial asymmetry or focal weakness. Extraocular movements are intact. SKIN: Intact. DIAGNOSTIC STUDIES/LAB DATA: WBC 10.6, hemoglobin 13.0, hematocrit 39, platelet count 403. Sodium 135, potassium 3.9, chloride 101, serum bicarbonate 27, BUN 19, creatinine 0.98, glucose 110. Troponin 0.01. Chest x-ray shows no active disease. The chest, abdomen, pelvis CTA is read as follows: "No CT evidence of aortic aneurysm or dissection. No CT evidence of acute pulmonary embolic disease. Cholelithiasis unchanged. Left renal cyst unchanged. Scattered diverticula unchanged. No CT evidence of diverticulitis. Prostatic hypertrophy." EKG shows sinus rhythm with PVCs. Last EKG was from 10 years ago. There is concern for the absence of R waves in the anterior leads. ASSESSMENT AND PLAN: Mr. Brito is a 66-year-old male with a past medical history of obstructive sleep apnea, on home CPAP; atrial fibrillation; hypertension; cardiomyopathy and mitral valve repair, who presents today to the hospital with concern for odd sensation of tingling and burning in the middle of his chest as well as palpitations. He described these episodes as being associated with low blood pressure and low heart rate. Our plans are for observation in the hospital for the followin. Chest pain and palpitations. The patient will have telemetry monitoring continuously. His first troponin is negative. We will repeat that x2. He will go on transthoracic echocardiogram tomorrow. I am repleting his magnesium and potassium. 2. Hypertension. Continue metoprolol. The patient has been holding his lisinopril at home out of concern of his low blood pressure and I will continue to hold that now. 3. Afib: Patient is in normal sinus rhythm. He is currently on warfarin for DVT prophylaxis after knee surgery. 4. Recent left knee surgery. Plan to continue tramadol and [place] as needed. 5. DVT prophylaxis, with Coumadin, now that he is postop from a knee surgery, he is at 2 mg with his last INR noted to be 3.44 on 05/27/16. A repeat is pending for now. 6. Code status. Full code. TIME SPENT: Approximately 60 minutes was spent in the admission of this patient , more than half of the time was spent with him at the bedside reviewing the events leading up to this hospitalization, performing the physical examination, and reviewing my plan of care. TRACY TALAVERA NP CC: Dr. Phillip* [id number]/[facility] #: [id number] [facility] NOBLE HOSPITALGela
[2016-05-29] MEDS: Docusate CAP* 100 MG PO SCH (23:15)
[2016-05-30] MEDS: Docusate CAP* 100 MG PO SCH (10:35)
--- NOTE | 2016-05-30 13:10 | ECHO ---
Patient: CHARLES MCDERMOTT [facility] Rec#: [id number] : 1950 Date: 05/30/2016 Age: 66y Height: 182.9 cm / 72.0 in Weight: 91.6 kg / 201.9 lbs Sex: M BSA: 2.14 Room#: [facility] Admit Date#: 05/29/2016 Type: Inpatient Referring: Tracy Talavera NP Reading: Trinh Marcial MD Data Acquisition Technician: Lala Barros RN RDCS CC: Gabe Phillip MD Transthoracic Echocardiogram Indication: Chest pain, palpitations BP: 125/76 HR: 73 Rhythm: NSR Findings History: A. fib, HTN, MV repair in 1999, cardiomyopathy, GARRET, former smoker, recent knee surgery Technical Comments: The study quality is fair. The study is technically limited due to the patient's smoking history. Completed at 1225. Left Ventricle: The left ventricular chamber size is normal. Mild to moderate concentric left ventricular hypertrophy is observed. There is increased basal septal hypertrophy noted without evidence of an increased gradient across the left ventricular outflow tract. There is global hypokinesis of the left ventricle with minor regional variation.Base of the inferior wall hypokinetic and the septum is hypokinetic and dyskinetic. There is mild to moderately decreased left ventricular systolic function. The estimated ejection fraction is 40-45%. Ventricular septal wall motion has a post-operative appearance. The assessment of diastolic function is non-diagnostic. Left Atrium: The left atrium is mildly dilated. Right Ventricle: The right ventricle is mildly dilated. The right ventricular global systolic function is low normal. Right Atrium: The right atrial cavity size is normal. The interatrial septum appears lipomatous. There is evidence of an atrial septal aneurysm. Possible PFO based on color Doppler in 4 chamber view. Aortic Valve: The aortic valve is trileaflet. The aortic valve leaflets are mildly thickened. There is a trace of aortic regurgitation. There is no evidence of aortic stenosis. Mitral Valve: The mitral valve leaflets are mildly thickened., s/p repair, posterior leaflet immobile, anterior leaflet thickened as well. There is mild to moderate mitral regurgitation. There is no evidence of mitral stenosis. Tricuspid Valve: The tricuspid valve leaflets are normal. There is mild tricuspid regurgitation. There is evidence of borderline pulmonary hypertension. There is no tricuspid stenosis. Pulmonic Valve: The pulmonic valve appears normal. There is a trace pulmonic regurgitation. There is no pulmonic stenosis. Pericardium: There is no significant pericardial effusion. A pericardial fat pad is visualized. Aorta: There is mild dilatation of the ascending aorta. There is no dilatation of the aortic arch. The aortic root is normal in size. Pulmonary Artery: The main pulmonary artery appears normal. Venous: The venous system is not well visualized. The inferior vena cava is not visualized. Conclusions Mild to moderate concentric left ventricular hypertrophy is observed. The estimated ejection fraction is 40-45%, septal and inferior wall motion abnormalites. The left atrium is mildly dilated. There is evidence of an atrial septal aneurysm and possible PFO. The aortic valve leaflets are mildly thickened. Mitral valve s/p repair, posterior leaflet immobile, anterior leaflet thickened. There is mild to moderate mitral regurgitation. There is mild tricuspid regurgitation. PA pressure is 33 mmHg. There is mild dilatation of the ascending aorta. When compared with prior echo of 12/24/14, EF has decreased from 50-55%, wall motion abnormalities are new. Mitral valve function is stable, aorta is stable. Measurements Name Value Normal Range RVIDd (AP) 2D 3.3 cm (0.9 - 2.6) RVDdMajor (2D) 4.3 cm (2.2 - 4.4) RAd ISD 4CH 4.9 cm (3.4 - 4.9) RA (A4C)W 4.3 cm (2.9 - 4.6) IVSd (2D) 1.7 cm (0.6 - 1) LVPWd (2D) 1.2 cm (0.6 - 1) LVIDd (2D) 4.2 cm (3.6 - 5.4) LVIDs (2D) 3.6 cm - LV FS (2D) 16 % (25 - 45) Aortic Annulus 2.5 cm (1.4 - 2.6) Ao root diameter (2D) 3.3 cm (2.1 - 3.5) Ascending Ao 3.5 cm (2.1 - 3.4) Aortic arch 3 cm (1.8 - 3.4) LA dimension (AP) 2D 4.3 cm (2.3 - 3.8) LAd ISD 4CH 5.2 cm (2.9 - 5.3) LA ISD 4CH W 4.4 cm (2.5 - 4.5) Name Value Normal Range LA ESV SP 4CH (A/L) 59 ml - LA ESV SP 2CH (A/L) 61 ml - LA ESV BP (A/L) 63 ml - LA ESV BP (A/L) index 29.4 ml/m2 - LA ESV SP 4CH (MOD) 53 ml - LA ESV SP 2CH (MOD) 59 ml - Name Value Normal Range MV E-wave Vmax 0.98 m/sec - MV deceleration time 222 msec - MV A-wave Vmax 0.91 m/sec - MV E:A ratio 1.1 ratio - LV septal e' Vmax 0.07 m/sec - LV lateral e' Vmax 0.08 m/sec - LV E:e' septal ratio 14 ratio - LV E:e' lateral ratio 12.3 ratio - Name Value Normal Range AV Vmax 0.92 m/sec - AV VTI 20.5 cm - AV peak gradient 3.39 mmHg - AV mean gradient 2.3 mmHg - LVOT diameter 2.5 cm - LVOT Vmax 0.85 m/sec - LVOT VTI 17.7 cm - LVOT peak gradient 2.8 mmHg - AMADOR (continuity Vmax) 4.5 cm2 - AMADOR (continuity VTI) 4.2 cm2 - SCAR Vmax 0.48 m/sec - Name Value Normal Range MV Vmax 1.1 m/sec - MV VTI 30.5 cm - MV peak gradient 4.6 mmHg - MV mean gradient 2.5 mmHg - MV PHT 90 msec - MVA (PHT) 2.5 cm2 - MVA (continuity VTI) 2.9 cm2 - Name Value Normal Range TR Vmax 2.5 m/sec - TR peak gradient 25 mmHg - RAP 8 mmHg - RVSP 33 mmHg - Name Value Normal Range PV Vmax 0.68 m/sec -
[2016-05-30 16:19] VITALS: BP 140/81
[2016-05-30] MEDS ORDERED: Warfarin TAB(*) 2 MG PO SCH (17:00)
[2016-05-30] MEDS ORDERED: Metoprolol Succinate XL TAB* 25 MG PO SCH (18:00)
--- NOTE | 2016-05-30 23:42 | DS ---
DISCHARGE SUMMARY: DATE OF ADMISSION: 05/29/16 DATE OF DISCHARGE: 05/30/16 PRIMARY DIAGNOSIS: Chest pain of noncardiac origin. SECONDARY DIAGNOSES: 1. Paroxysmal atrial fibrillation. 2. Hypertension. 3. History of mitral valve repair in year 1999. 4. Lumbar disk disease. 5. Nonischemic cardiomyopathy. 6. Obstructive sleep apnea, treated with dental appliance. MEDICATIONS ON DISCHARGE: 1. Warfarin 2 mg p.o. q.p.m. 2. Tramadol 50 mg p.o. q.6 hours p.r.n. for mild pain. 3. Hydrocodone/APAP 5/325 mg one tab q.4 hours p.r.n. for moderate pain. 4. Hydrocodone/APAP 5/325 mg 2 tabs q.4 hours p.r.n. for severe pain. 5. Lisinopril 2.5 mg p.o. q.p.m. 6. Toprol-XL 25 mg p.o. q.p.m. HOSPITAL COURSE: A 66-year-old patient with recent left total knee replacement completed on 05/20/16, presented with atypical electric crawling, tickling feeling in the left lower chest. This was accompanied by some vague nausea and relative hypotension. The patient was admitted to telemetry for observation to rule out acute coronary syndrome. Pertinent findings upon admission included troponin negative x3, normal electrolytes except for a magnesium of 1.8. This was repeated with 2 g IV magnesium. He did have elevated AST at 41, ALT of 59 and alk phos of 170. CT of the chest, abdomen, and pelvis completed in the emergency department did show cholelithiasis without any biliary duct dilatation , left renal cyst. EKG showed normal sinus rhythm with PVCs and a new Q waves in lead III and V1 through V4 consistent with old anterior and inferior MS. Transthoracic echocardiogram was completed on the day of discharge which showed ejection fraction in the 40% to 45% range with mild concentric LVH and atrial septal aneurysm with possible PFO, evidence of past mitral valve repair, mild-to -moderate mitral regurgitation, mild dilatation of the ascending aorta. There were some segmental wall motion abnormalities in the inferior wall. The patient had another brief episode of about 4 to 5 seconds of this chest crawling sensation in the afternoon prior to discharge. This discomfort resolved spontaneously and was not associated with shortness of breath, diaphoresis, or nausea. The patient is planned to be discharged home today. DIET: Low salt, low fat. ACTIVITY: As tolerated. FOLLOWUP: He should follow up with Dr. Marcial for cardiology and Dr. Phillip for primary care. Given the atypical chest discomfort and the abnormal wall motion abnormalities on echo, the patient should consider having a repeat stress test as on outpatient. The patient also has mildly abnormal LFTs and known cholelithiasis. It is possible he passed a small gallstone. Repeat CMP if planned as outpatient. He should follow low fat diet to prevent the gallbladder colic. [id number]/[facility] #: [id number] [place]
== END 2016-05-30 19:59 | disposition home or self-care (01) ==
LOC: ED 16:19 → MEDTELE 19:34
PROVIDERS: ADMIT Hospitalist; ATTEND Internal Medicine
DX: R07.89 Other chest pain (principal); I48.0 Paroxysmal atrial fibrillation; Z79.01 Long term (current) use of anticoagulants; I10 Essential (primary) hypertension; G47.33 Obstructive sleep apnea (adult) (pediatric); Z87.891 Personal history of nicotine dependence
CPT/HCPCS: 36415; 71010; 71275; 74174; 80053; 83605; 83690; 83735; 84484; 85025; 85610; 93005; 93306; 99284; A9270-GY; G0378; J3475; Q9967

== ENCOUNTER 2016-06-17 12:20 | Observation (INO) | payer OTHER ==
[2016-06-17] MEDS ORDERED: NS 0.9% 1000 ML* 1,000 ML IV ONE (13:04)
--- NOTE | 2016-06-17 13:25 | RAD ---
INDICATION: Short of breath. Pneumonia. COMPARISON: May 29, 2016 TECHNIQUE: PA and lateral dual-energy views were obtained. FINDINGS: Bones/Soft Tissues: There are no acute bony findings. There is sternotomy Cardiomediastinal: The cardiomediastinal silhouette is normal. Lungs: There are no infiltrates. Pleura: There are no pleural effusions. Other: None IMPRESSION: NO ACTIVE DISEASE.
[2016-06-17 13:54] LABS: Hematocrit 38 % (42-52); Hemoglobin 12.8 g/dl (14.0-18.0); Mean Corpuscular HGB Conc 33 g/dl (31-36); Mean Corpuscular Hemoglobin 30 pg (27-31); Mean Corpuscular Volume 89 fL (80-94); Mean Platelet Volume 8 um3 (7.4-10.4); Red Blood Count 4.28 10^6/ul (4.0-5.4); Red Cell Distribution Width 13 % (10.5-15); White Blood Count 7.2 10^3/ul (3.5-10.8)
--- NOTE | 2016-06-17 14:03 | RAD ---
INDICATION: Aphasia. Slurred speech COMPARISON: MRI brain brain March 15, 2011 TECHNIQUE: Noncontrast axial source images were acquired from the skull base to the vertex. FINDINGS: Ventricles/sulci: The ventricles and cisterns are normal in size and configuration for age. Brain parenchyma: There is no acute focal parenchymal finding, evidence of intracranial mass, or intracranial mass effect. There is mild subcarinal encephalomalacia noted bilaterally greater on the left than the right. Intracranial hemorrhage:None. Extra-axial spaces: There are no abnormal extra axial fluid collections or evidence of extra-axial mass. Calvarium: There is no calvarial fracture or other calvarial abnormality. Scalp: There is no evidence of scalp or extracalvarial soft tissue abnormality. Paranasal sinuses/mastoid: The paranasal sinuses and mastoid air cells are clear. Other: None. IMPRESSION: CHRONIC SUBFRONTAL ABNORMALITIES. NO ACUTE FINDINGS
[2016-06-17 15:13] LABS: Urine Bilirubin Negative (Negative); Urine Glucose Negative (Negative); Urine Nitrite Negative (Negative)
[2016-06-17 15:26] LABS: Troponin I 0.01 ng/mL (<0.04)
[2016-06-17 15:37] LABS: Albumin 3.6 g/dL (3.2-5.2); BUN/Creatinine Ratio 19.8 (8-20); Calcium 8.8 mg/dL (8.6-10.3); EGFR African American 113.7 (>60); EGFR Non-African American 88.4 (>60); Globulin 2.2 g/dL (2-4); HDL Cholesterol 23.6 mg/dL; Potassium 3.7 mmol/L (3.5-5.0); Total Bilirubin 0.5 mg/dL (0.2-1.0); Total Protein 5.8 g/dL (6.4-8.9)
[2016-06-17] MEDS ORDERED: Iohexol 350* (CONTRAST) 500 ML MDV IV ONE (15:46)
--- NOTE | 2016-06-17 16:42 | RAD ---
INDICATION: CVA, aphasia evaluate for carotid stenosis. COMPARISON: Comparison is made with a prior CT of the brain of the same date. Correlation is also made with a prior MRI of the brain from March 15, 2011. TECHNIQUE: A CT angiogram of the head and neck was performed following intravenous injection of 80 ml of Omnipaque 350 nonionic contrast. Contiguous axial sections were obtained from the thoracic inlet through the skull vertex. Images were reconstructed in the coronal and sagittal planes and in a 3-D volume rendered format. The distal cervical internal carotid artery diameter is used as the denominator for stenosis measurement. FINDINGS: RIGHT CAROTID: The right subclavian artery extends posterior to the trachea consistent with aberrant origin. The right common carotid artery arises separately from the aortic arch and appears widely patent. There is a moderate grade approximately 40% stenosis of the proximal internal carotid artery. The remaining internal carotid artery appears widely patent. LEFT CAROTID: The left common and internal carotid arteries appear widely patent.. VERTEBRALS: The right vertebral artery arises from the proximal right common carotid artery consistent with normal variation. The vertebral arteries appear widely patent. The left vertebral artery appears dominant. CTA BRAIN: There is moderate calcific plaque present within the cavernous portion of the internal carotid arteries on both sides. The anterior cerebral arteries appear widely patent without evidence for high-grade stenosis or occlusion. The middle cerebral arteries appear patent without evidence for high-grade stenosis. The vertebral, basilar and posterior cerebral arteries appear patent without evidence for high-grade stenosis or occlusion. Images of the brain demonstrate focal areas of decreased attenuation and encephalomalacia present in the inferior portions of both frontal lobes which are unchanged from the prior studies. No gross focal perfusion abnormalities are appreciated. No aneurysm or vascular malformation is seen. NECK: No significant enlarged lymph nodes are seen within the neck. The thyroid, parotid and submandibular glands appear to be within normal limits. The lung apices appear clear. The sinuses are clear. IMPRESSION: 1. NO EVIDENCE FOR HEMODYNAMICALLY SIGNIFICANT CAROTID STENOSIS. 2. NO EVIDENCE FOR INTRACRANIAL LARGE VESSEL INTRALUMINAL THROMBUS. 3. 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 CPT II Codes: 3100F
[2016-06-17] MEDS ORDERED: Aspirin Low Dose CHEW TAB* 81 MG PO ONE (16:57)
--- NOTE | 2016-06-17 17:03 | ED ---
Parveen Black Billy, scribed for Matt Kat MD on 06/17/16 at 1302 . Altered Mental Status - HPI Summary HPI Summary: Patient is a 66 year-old male coming to [facility] for evaluation of intermittent episodes of aphasia. He states that he has some confusion and difficulty expressing his speech. He states that he understands what he is saying, but that his "tongue feels thick." He states that these episodes have occurred intermittently since his recent left knee replacement 4 weeks ago. His leg has been healing well since the surgery. Each episode of confusion and aphasia can last anywhere from several minutes to 45 minutes in duration. He denies any facial droop, weakness in the extremities, headache, fevers, or chills. He states he has had intermittent visual changes in the past since his heart valve replacement in 1998, but these have been chronic and unchanged today. He feels intermittent SOB. - History Of Current Complaint Chief Complaint: EDAltMentalStatus Stated Complaint: CONFUSSION/AMS/SENT BY DR Elliott Seen by Provider: 06/17/16 12:48 Hx Obtained From: Patient Timing: Intermittent, Lasting Weeks Severity Initially: Moderate Severity Currently: Moderate Character: Confusion Aggravating Factor(s): Unknown Alleviating Factor(s): Unknown - Allergies/Home Medications Allergies/Adverse Reactions: Allergies Allergy/AdvReac Type Severity Reaction Status Date / Time Hydrocodone Allergy FEEL Verified 05/29/16 16:23 [From Hydrocodone "YUCKY", W/Acetaminophen] DOES NOT FEEL IT WORKS Niacin Allergy Rash Verified 05/29/16 16:23 ENVIRONMENTAL Allergy CONGESTION, Uncoded 05/29/16 16:23 COUGH Home Medications: Home Medications Metoprolol Succinate XL TAB* [Toprol XL TAB*] 37.5 mg PO QPM 06/17/16 [History Confirmed 06/17/16] Warfarin TAB(*) [Coumadin TAB(*)] 4 mg PO 1700 06/17/16 [History Confirmed 06/17] PMH/Surg Hx/FS Hx/Imm Hx Endocrine/Hematology History: Denies: Hx Diabetes Cardiovascular History: Reports: Hx Atrial Fibrillation, Hx Coronary Artery Disease, Hx Hypertension, Hx Valvular Heart Disease - MITRAL VALVE REPAIRED 1998 Denies: Hx Pacemaker/ICD Respiratory History: Reports: Hx Sleep Apnea - MILD, NO CPAP OR BIPAP GI History: Reports: Hx Irritable Bowel, Hx Ulcer - HX OF YEARS AGO, Other GI Disorders - gall stones History: Reports: Hx Kidney Stones - 03/2016 Denies: Hx Renal Disease Musculoskeletal History: Reports: Hx Arthritis - BACK, Hx Orthopedic Injury - LTKR 05/21/2016, ACL repair 2010 Denies: Hx Scoliosis Sensory History: Reports: Hx Contacts or Glasses - GLASSES Denies: Hx Hearing Aid Opthamlomology History: Reports: Hx Contacts or Glasses - GLASSES Neurological History: Reports: Hx Migraine - OCCASIONALLY, Hx Seizures - PETIT MAL - MOSTLY VERTIGO, LAST ONE LAST WEEK ([place]) Denies: Hx Headaches, Other Neuro Impairments/Disorders Psychiatric History: Denies: Hx Panic Disorder - Surgical History Surgery Procedure, Year, and Place: 1998-MITRAL VALVE REPAIR-CLIPS ON BREAST BONE. 2010-ACL REPAIR LEFT KNEE. 2013 LSP SURGERY. LEFT KNEE TRIMMED CARTILAGE 1987. LTKR-05/21/2016 Hx Anesthesia Reactions: No - Immunization History Date of Tetanus Vaccine: 2015 Infectious Disease History: No Infectious Disease History: Denies: Traveled Outside the [place] in Last 30 Days - Family History Known Family History: Negative: Cardiac Disease, Diabetes - Social History Alcohol Use: Weekly Alcohol Amount: 2-4/WEEK Substance Use Type: Reports: None Smoking Status (MU): Former Smoker Type: Cigarettes Amount Used/How Often: 1 PACK PER WEEK FOR ABOUT 5-6 YEARS Length of Time of Smoking/Using Tobacco: 5-6 YEARS Have You Smoked in the Last Year: No Review of Systems Negative: Fever, Chills Positive: Shortness Of Breath Positive: Arthralgia - left knee Neurological: Other - aphasia, confusion Negative: Headache, Weakness All Other Systems Reviewed And Are Negative: Yes Physical Exam - Summary Physical Exam Summary: The patient is well-nourished in no acute distress and in no acute pain. The skin is warm and dry and skin color reflects adequate perfusion. HEENT: The head is normocephalic and atraumatic. The pupils are equal and reactive. The conjunctivae are clear and without drainage. Nares are patent and without drainage. Mouth reveals moist mucous membranes and the throat is without erythema and exudate. The external ears are intact. The ear canals are patent and without drainage. The tympanic membranes are intact. Neck is supple with full range of motion and non-tender. There are no carotid bruits. There is no neck vein distension. Respiratory: Chest is non-tender. Lungs are clear to auscultation and breath sounds are symmetrical and equal. Cardiovascular: Heart is irregularly irregular. There is no murmur or rub auscultated. There is no peripheral edema and pulses are symmetrical and equal. Abdomen: The abdomen is soft and non-tender. There are normal bowel sounds heard in all four quadrants and there is no organomegaly palpated. Musculoskeletal: There is no back pain noted. Extremities are non-tender with full range of motion. There is good capillary refill. There is no peripheral edema or calf tenderness elicited. Neurological: Patient is alert and oriented to person, place and time. The patient has symmetrical motor strength in all four extremities. Cranial nerves are grossly intact. No facial droop. No pronator drift. Zbnr-yk-[id number] intact. Wyztia-om-mdca intact. Deep tendon reflexes are symmetrical and equal in all four extremities. Psychiatric: The patient has an appropriate affect and does not exhibit any anxiety or depression. Triage Information Reviewed: Yes Vital Signs On Initial Exam: Initial Vitals Temp Pulse Resp BP Pulse Ox 98.2 F 101 20 116/81 100 06/17/16 12:23 06/17/16 12:23 06/17/16 12:23 06/17/16 12:23 06/17/16 12:23 Vital Signs Reviewed: Yes Diagnostics - Vital Signs Vital Signs Temp Pulse Resp BP Pulse Ox 06/17/16 12:23 98.2 F 101 20 116/81 100 - Laboratory Lab Results: Lab Results 06/17/16 06/17/16 06/17/16 Range/Units 13:35 13:35 13:35 WBC 7.2 (3.5-10.8) 10^3/ul RBC 4.28 (4.0-5.4) 10^6/ul Hgb 12.8 L (14.0-18.0) g/dl Hct 38 L (42-52) % MCV 89 (80-94) fL MCH 30 (27-31) pg MCHC 33 (31-36) g/dl RDW 13 (10.5-15) % Plt Count 282 (150-450) 10^3/ul MPV 8 (7.4-10.4) um3 Neut % (Auto) 83.9 H (38-83) % Lymph % (Auto) 8.0 L (25-47) % Meade % (Auto) 6.6 (1-9) % Eos % (Auto) 1.0 (0-6) % Baso % (Auto) 0.5 (0-2) % Absolute Neuts (auto) 6.0 (1.5-7.7) 10^3/ul Absolute Lymphs (auto) 0.6 L (1.0-4.8) 10^3/ul Absolute Monos (auto) 0.5 (0-0.8) 10^3/ul Absolute Eos (auto) 0.1 (0-0.6) 10^3/ul Absolute Basos (auto) 0 (0-0.2) 10^3/ul Absolute Nucleated RBC 0.01 10^3/ul Nucleated RBC % 0.1 INR (Anticoag Therapy) 1.41 H (0.89-1.11) Sodium (133-145) mmol/L Potassium (3.5-5.0) mmol/L Chloride (101-111) mmol/L Carbon Dioxide (22-32) mmol/L Anion Gap (2-11) mmol/L BUN (6-24) mg/dL Creatinine (0.67-1.17) mg/dL Est GFR ( Amer) (>60) Est GFR (Non-Af Amer) (>60) BUN/Creatinine Ratio (8-20) Glucose (70-100) mg/dL Lactic Acid 0.8 (0.5-2.0) mmol/L Calcium (8.6-10.3) mg/dL Total Bilirubin (0.2-1.0) mg/dL AST (13-39) U/L ALT (7-52) U/L Alkaline Phosphatase (34-104) U/L Troponin I (<0.04) ng/mL B-Natriuretic Peptide ( - 100) pg/mL Total Protein (6.4-8.9) g/dL Albumin (3.2-5.2) g/dL Globulin (2-4) g/dL Albumin/Globulin Ratio (1-3) Triglycerides mg/dL Cholesterol mg/dL LDL Cholesterol mg/dL HDL Cholesterol mg/dL Urine Color Urine Appearance Urine pH (5-9) Ur Specific [place] (1.010-1.030) Urine Protein (Negative) Urine Ketones (Negative) Urine Blood (Negative) Urine Nitrate (Negative) Urine Bilirubin (Negative) Urine Urobilinogen (Negative) Ur Leukocyte Esterase (Negative) Urine Glucose (Negative) Urine Ascorbic Acid (Negative) 06/17/16 06/17/16 06/17/16 Range/Units 13:35 15:00 15:00 WBC (3.5-10.8) 10^3/ul RBC (4.0-5.4) 10^6/ul Hgb (14.0-18.0) g/dl Hct (42-52) % MCV (80-94) fL MCH (27-31) pg MCHC (31-36) g/dl RDW (10.5-15) % Plt Count (150-450) 10^3/ul MPV (7.4-10.4) um3 Neut % (Auto) (38-83) % Lymph % (Auto) (25-47) % Meade % (Auto) (1-9) % Eos % (Auto) (0-6) % Baso % (Auto) (0-2) % Absolute Neuts (auto) (1.5-7.7) 10^3/ul Absolute Lymphs (auto) (1.0-4.8) 10^3/ul Absolute Monos (auto) (0-0.8) 10^3/ul Absolute Eos (auto) (0-0.6) 10^3/ul Absolute Basos (auto) (0-0.2) 10^3/ul Absolute Nucleated RBC 10^3/ul Nucleated RBC % INR (Anticoag Therapy) (0.89-1.11) Sodium 138 (133-145) mmol/L Potassium 3.7 (3.5-5.0) mmol/L Chloride 105 (101-111) mmol/L Carbon Dioxide 28 (22-32) mmol/L Anion Gap 5 (2-11) mmol/L BUN 17 (6-24) mg/dL Creatinine 0.86 (0.67-1.17) mg/dL Est GFR ( Amer) 113.7 (>60) Est GFR (Non-Af Amer) 88.4 (>60) BUN/Creatinine Ratio 19.8 (8-20) Glucose 118 H (70-100) mg/dL Lactic Acid (0.5-2.0) mmol/L Calcium 8.8 (8.6-10.3) mg/dL Total Bilirubin 0.50 (0.2-1.0) mg/dL AST 17 (13-39) U/L ALT 13 (7-52) U/L Alkaline Phosphatase 98 (34-104) U/L Troponin I 0.01 (<0.04) ng/mL B-Natriuretic Peptide 89 ( - 100) pg/mL Total Protein 5.8 L (6.4-8.9) g/dL Albumin 3.6 (3.2-5.2) g/dL Globulin 2.2 (2-4) g/dL Albumin/Globulin Ratio 1.6 (1-3) Triglycerides 150 mg/dL Cholesterol 153 mg/dL LDL Cholesterol 99 mg/dL HDL Cholesterol 23.6 mg/dL Urine Color Yellow Urine Appearance Clear Urine pH 5.0 (5-9) Ur Specific [place] 1.018 (1.010-1.030) Urine Protein Negative (Negative) Urine Ketones Negative (Negative) Urine Blood Negative (Negative) Urine Nitrate Negative (Negative) Urine Bilirubin Negative (Negative) Urine Urobilinogen Negative (Negative) Ur Leukocyte Esterase Negative (Negative) Urine Glucose Negative (Negative) Urine Ascorbic Acid * H (Negative) Result Diagrams: 06/17/16 13:35 06/17/16 15:00 Lab Statement: Any lab studies that have been ordered have been reviewed, and results considered in the medical decision making process. - Radiology CXR Xray Interpretation: No Acute Changes Radiology Interpretation Completed By: Radiologist - CT brain CT Interpretation: No Acute Changes CT Interpretation Completed By: Radiologist CTA head CT Interpretation Completed By: Radiologist - 1. NO EVIDENCE FOR HEMODYNAMICALLY SIGNIFICANT CAROTID STENOSIS. 2. NO EVIDENCE FOR INTRACRANIAL LARGE VESSEL INTRALUMINAL THROMBUS. 3. 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 - EKG 1235 EKG Interpretation: NSR 74 bpm, no STEMI. Old inferior wall and anterior wall GA. 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 Non-Paretic Hand: Both Correctly Best Gaze (Only Horizontal Eye Movement): Normal Visual Field Testing: No Visual Loss Facial Paresis-Pt to Smile & Close Eyes or Grimace Symmetry: Normal/Symmetrical Motor Function - Right Arm: No Drift-Holds 10 Seconds Motor Function - Left Arm: No Drift-Holds 10 Seconds Motor Function - Right Leg: No Drift-Holds 10 Seconds Motor Function - Left Leg: No Drift-Holds 10 Seconds Limb Ataxia-Must be out of Proportion to Weakness Present: Absent Sensory (Use Pinprick to Test Arms/Legs/Trunk/Face): Normal Best Language (Describe Picture, Name Items): No Aphasia Dysarthria (Read Several Words): Normal Extinction and Inattention: No Abnormality Total Score: 0 Re-Evaluation - Re-Evaluation First Eval Re-Evaluation Time: 14:18 Change: Unchanged Comment: Plan for CTA head/neck imaging to r/o critical stenosis discussed with the patient. He is agreeable with this plan. Altered Mental Statu Course/Dx - Course Assessment/Plan: 66 y/o male coming to [facility] for evaluation of AMS, confusion, and aphasia. CT of the brain shows no intracranial pathology. CTA of the head shows findings as read by radiologist. CXR shows no acute intrathoracic pathology. EKG shows NSR 74 bpm, no STEMI, old inferior wall and anterior wall GA. Case discussed with Dr. Cowan, who recommended admission to hospitalist services. Case discussed with Dr. Grant, who admitted the patient to her services. - Diagnoses Differential Diagnosis/HQI/PQRI: CVA, TIA Discharge Diagnoses: TIA (transient ischemic attack) - Provider Notifications Discussed Care Of Patient With: Dr. Cowan (neurology) @ 1410: recommends CTA head/neck. If this shows no critical stenosis, he will be admitted to hospitalist services for TIA workup. Otherwise, he will be transferred to another facility for further care. Dr. Cowan (neurology) @ 1645: recommends admission. Dr. Grant (hospitalist) @ 1650: accepts admission. Discharge - Discharge Plan Condition: Stable Disposition: ADMITTED TO [facility] Referrals: Gabe Phillip MD [Primary Care Provider] - The documentation as recorded by the Parveen matta Billy accurately reflects the service I personally performed and the decisions made by me, Matt Kat MD.
--- NOTE | 2016-06-17 18:04 | CONS ---
CONSULTATION REPORT: DATE OF CONSULT: 06/17/16 PATIENT OF: Dr. Phillip, Dr. Kat, Dr. Marcial and Dr. Villalobos. HISTORY OF PRESENT ILLNESS: This is a 66-year-old right-handed man, I am asked to evaluate for frequent episodes of expressive aphasia in the past month. He dates it from his total knee arthroplasty done on 05/20/16. He says these episodes last anywhere from 5 to 45 minutes and they are quite similar. He can think of the word he wants to say, but he has difficulty getting out of his mouth and his speech sounds off to him. His comprehension he says is intact. During this time, he has no weakness. No visual symptoms. No headache with this. He had an episode today and he came into the hospital. 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 He has seen Dr. Villalobos for both these problems in the past. His only new medicine in the past month has been Coumadin following his knee surgery. He has had no prior strokes. PAST MEDICAL HISTORY: Includes atrial fibrillation, hypertension, mitral valve repair in 1999, lumbar disk herniation, cardiomyopathy, back pain, knee pain, left total knee arthroplasty 05/20/16. Obstructive sleep apnea, not on home nasal CPAP. MEDICATIONS AT HOME: Include: 1. Metoprolol 37.5 mg daily. 2. Hydrocodone/acetaminophen 2 tablets q.4 h. p.r.n. pain. 3. Coumadin 4 mg daily. 4. Colace 100 mg b.i.d. There is a medication Dr. Marcial was going to start him on but he has not started that yet. He does not know the name of that. He also has some mild hypertension but that is controlled by metoprolol. ALLERGIES: Include NIACIN and HYDROCODONE, by his report although he is taking HYDROCODONE currently. FAMILY HISTORY: His father had stroke and heart attack. Mother of old age. Sister has multiple sclerosis. SOCIAL HISTORY: He quit smoking 25 years ago. He drinks less than 2 beers a day. He does not use any drugs. He says his daughter is his healthcare proxy. REVIEW OF SYSTEMS: Negative in all 14 spheres other than the HPI. PHYSICAL EXAMINATION: Temperature 98.2, pulse 79, respirations 15, blood pressure 142/83. He is alert and oriented with normal speech and comprehension. Cranial nerves II through XII were intact. Fundi were benign. Motor exam revealed normal tone, strength, coordination. Reflexes are 1+ and equal. Chest clear. Cardiovascular: Regular rate and rhythm. Abdomen is soft with positive bowel sounds. He had no visual field cuts. He notes that in the past he has had some episodes of hemianopia but not associated with his migraines. DIAGNOSTIC STUDIES/LAB DATA: A CT scan was normal. His EKG showed normal sinus rhythm and an old infarct. His CBC was normal other than hematocrit of 38. His INR was 1.4. Lactate and BNP was normal. His other blood works are pending. He is going to be getting a CTA as well. IMPRESSION: I discussed this with Dr. Kat and the patient that he is having episodes that sound most like brief 5 to 45 minutes episodes of an expressive aphasia. Even though it could be on an ischemic basis, it would be unlikely to be from atrial fibrillation to have such a tiny stroke in the same distribution for at least 10 to 20 times. Usually with embolic strokes, we would have different vascular distributions. I would be concerned that he could have atherosclerotic disease and we are obtaining a CTA now to rule that out. If it does not show a critical stenosis, he would be admitted here. If it showed critical stenosis, he would be transferred to an appropriate center. Depending on what we find, if that is negative we will be getting an MRI scan if possible to help figure out whether he can get this with his recent knee surgery. We would also need to address whether or not to continue his anticoagulation depending on whether we thought some of his ischemic disease could be coming from his heart. An MRI scan would be useful in terms of sorting this out. The other possibility is his spells could be a brief aphasia from seizures and depending on the results of these tests, we may be getting an EEG tomorrow. Thank you for sharing his case. [id number]/[facility] #: [id number] EDWARD
[2016-06-17] MEDS ORDERED: HYDROcodone/ACETAMIN 5-325 MG* 1 TAB PO PRN (18:36)
--- NOTE | 2016-06-17 20:45 | RAD ---
INDICATION: TIA workup. COMPARISON: Comparison is made with a prior MRI of the brain from March 15, [address] of the brain from June 17, 2016. TECHNIQUE: Sagittal T1, axial T1, T2, susceptibility, FLAIR and diffusion weighted images were obtained. FINDINGS: The ventricles, cisterns and sulci appear to be within normal limits. There are several small focal areas of increased signal intensity present bilaterally within the frontal lobes which are unchanged from the prior MRI study most consistent with small areas of encephalomalacia. No other focal abnormality or mass effect is seen. No areas of restricted diffusion are present. There is no evidence for infarct or hemorrhage. The visualized portion of the paranasal sinuses and mastoid air cells appear clear. IMPRESSION: 1. NO EVIDENCE FOR ACUTE INTRACRANIAL ABNORMALITY. 2. SMALL BILATERAL AREAS OF ENCEPHALOMALACIA PRESENT WITHIN THE FRONTAL LOBES MOST CONSISTENT WITH AREAS OF PRIOR TRAUMA OR LESS LIKELY INFARCTS, UNCHANGED FROM THE PRIOR STUDY.
[2016-06-17] MEDS: Metoprolol Succinate XL TAB* 25 MG PO SCH (22:51)
[2016-06-17] MEDS: Docusate CAP* 100 MG PO SCH (22:52)
[2016-06-17] MEDS: Dronedarone TAB* 400 MG PO SCH (22:53)
[2016-06-17] MEDS: Warfarin TAB(*) 4 MG PO SCH ×2 (22:53→22:56)
[2016-06-18 06:52] LABS: Hematocrit 37 % (42-52); Hemoglobin 12.3 g/dl (14.0-18.0); Mean Corpuscular HGB Conc 34 g/dl (31-36); Mean Corpuscular Hemoglobin 30 pg (27-31); Mean Corpuscular Volume 89 fL (80-94); Mean Platelet Volume 9 um3 (7.4-10.4); Red Blood Count 4.15 10^6/ul (4.0-5.4); Red Cell Distribution Width 13 % (10.5-15); White Blood Count 5.7 10^3/ul (3.5-10.8)
[2016-06-18 07:13] LABS: Albumin 3.6 g/dL (3.2-5.2); BUN/Creatinine Ratio 17.4 (8-20); Calcium 8.9 mg/dL (8.6-10.3); EGFR African American 105.2 (>60); EGFR Non-African American 81.8 (>60); Globulin 2.1 g/dL (2-4); HDL Cholesterol 24.1 mg/dL; Total Bilirubin 0.8 mg/dL (0.2-1.0); Total Protein 5.7 g/dL (6.4-8.9)
[2016-06-18 08:00] LABS: Troponin I 0.01 ng/mL (<0.04)
[2016-06-18] MEDS: Docusate CAP* 100 MG PO SCH (08:13)
[2016-06-18] MEDS: Dronedarone TAB* 400 MG PO SCH ×2 (08:13→17:03)
[2016-06-18 16:29] VITALS: BP 106/70
[2016-06-18] MEDS: Metoprolol Succinate XL TAB* 25 MG PO SCH (17:03)
[2016-06-18] MEDS: Warfarin TAB(*) 4 MG PO SCH (17:03)
--- NOTE | 2016-06-19 03:37 | EEG ---
ELECTROENCEPHALOGRAPHY: DATE OF STUDY: DATE OF DICTATION: 06/18/16 - ROOM #440 PATIENT OF: Dr. Zuniga. CLINICAL PROBLEM: This is a 66-year-old man being evaluated for repeated episodes of an expressive aphasia over the past month lasting anywhere from 5 to 45 minutes. MEDICINES: Include: 1. . 2. Colace. 3. Coumadin. REPORT: With the patient awake, background cerebral activity consists of moderate amplitude posterior dominant 8 Hz rhythm, which attenuates with eye opening and reappears with eye closure. Photic stimulation does not activate the record. With the patient drowsy, there is slowing in to the theta range, but the patient never falls fully asleep. No epileptiform potentials, focal abnormalities, or major asymmetries of background are noted. CLINICAL IMPRESSION: This awake and drowsy EEG is within normal limits. [id number]/[facility] #: [id number] MTDD
--- NOTE | 2016-06-19 05:16 | PN ---
NEURO FOLLOWUP: DATE OF FOLLOWUP: DATE OF DICTATION: 06/18/16 PATIENT OF: Dr. Zuniga. HISTORY: This is a 66-year-old man who has had no further episodes today and he feels completely fine. PAST MEDICAL HISTORY: Past history is revealed today that he had head trauma in his 20s, it was a serious head trauma, he was in the hospital for several days. He does not remember full details. MEDICATIONS: Continued to be his: 1. Warfarin 4 mg daily. 2. Toprol 37.5 daily. 3. Multaq 400 b.i.d. 4. Colace 100 b.i.d. PHYSICAL EXAM: Vital Signs: Temperature 97.7, pulse 58, respiratory rate 16, blood pressure 133/87. He is alert and oriented with normal speech and comprehension. Cranial nerves II through XII were intact. Motor exam revealed normal tone and strength. Chest: Clear. Cardiovascular: Regular rate and rhythm. Abdomen: Soft with positive bowel sounds. DIAGNOSTIC STUDIES/LAB DATA: His CTA of the head and neck was normal. His MRI scan showed bifrontal lesions that were chronic and were there on prior MRI scans. He had a normal EEG. Labs include normal CBC today with hematocrit of 37. INR 1.4. BMP was normal other than a total protein of 5.7. IMPRESSION AND PLAN: I discussed with Juan and also Dr. Zuniga that the etiology of his aphasia is unclear. The two likely things that can cause these brief episodes of aphasia would be ischemic versus seizures. Since this is happening every couple of days' time, I am getting a prolonged EEG to try to capture an episode. It is possible that the lesions on MRI scan which are chronic could be a source of his seizure coming out of his left frontal area. It seems that the lesions on MRI scan are more likely due to his old head trauma given its location rather than stroke. We will be getting an echo to rule out clot and then he could probably go home after that. I have a call into Dr. Marcial about how long she was planning on keeping him on anticoagulation. We may want to keep him on until his EEG is done. I think that this is unlikely to be due to his atrial fibrillation. The other possibility if this is ischemic is likely be due to drop of blood pressure across the stenotic blood vessel, but his CTA looked unremarkable, so we have no prove for this. Thank you for sharing his case. [id number]/[facility] #: [id number] EDWARD
--- NOTE | 2016-06-20 23:09 | HP ---
HISTORY AND PHYSICAL AND DISCHARGE SUMMARY: DATE OF ADMISSION: 06/17/16 DATE OF DISCHARGE: 06/18/16 PRIMARY CARE PHYSICIAN: Dr. Gabe Phillip. PRINCIPAL DISCHARGE DIAGNOSIS: Transient ischemic attack versus seizure. SECONDARY DIAGNOSES: 1. Atrial fibrillation. 2. Hypertension. 3. Mitral valve repair, 1999. 4. Lumbar disk herniation. 5. Cardiomyopathy. 6. Back pain. 7. Knee pain. 8. Left total knee arthroplasty on 05/20/16. 9. Obstructive sleep apnea, not on CPAP. DISCHARGE MEDICATION REGIMEN: 1. Multaq 400 mg by mouth twice daily with meals. 2. Docusate 100 mg by mouth twice daily. 3. Hydrocodone/acetaminophen 5/325 mg strength 2 tabs every 4 hours as needed for knee pain. 4. Metoprolol XL 37.5 mg by mouth in the evening. 5. Warfarin 4 mg by mouth q.h.s. with followup INR to inform future dosing. FOLLOWUP: Followup appointment with Dr. Trinh Marcial and Dr. Gabe Phillip in the next 1 to 2 weeks. Potentially referral for outpatient EEG with Dr. Cowan at [phone] ([facility]). HISTORY OF PRESENT ILLNESS: Mr. Brito is a 66-year-old gentleman who came to the [facility] for intermittent episodes of aphasia. There was some confusion and difficulty expressing his speech. He explained that he can understand what he is saying, but that his tongue feels thick. He would think of a word but have difficulty communicating it. He recently had a knee replacement about 4 weeks and has been healing well. Each of the episodes of confusion last from several minutes to 45 minutes in duration. There was no focal weakness or sensory loss. There was no fever or chills recently. No intermittent visual changes since his heart valve replacement in 1998, but these have been chronic and unchanged today. The patient has seen Dr. Villalobos for these problems in the past. The patient has been on Coumadin following his knee surgery, but not to a therapeutic level. PAST MEDICAL HISTORY: 1. Atrial fibrillation. 2. Hypertension. 3. Mitral valve repair, 1999. 4. Cardiomyopathy. 5. Back pain and knee pain with left total knee arthroplasty in May 2016. 6. Obstructive sleep apnea. ALLERGIES: NIACIN/HYDROCODONE - he is taking hydrocodone currently, so the hydrocodone allergy is suspect. FAMILY HISTORY: Father had a stroke and heart attack. Mother of old age. Sister had multiple sclerosis. SOCIAL HISTORY: Quit smoking 25 years ago, drinks less than 2 beers per day and does not use illicit drugs. His daughter is his healthcare proxy. REVIEW OF SYSTEMS: Negative along 14 systems other than what was mentioned in the HPI. PHYSICAL EXAMINATION GENERAL APPEARANCE: Elderly appearing man, who appears stated age, in no apparent distress. Awake, alert, and oriented x3, answering questions appropriately. VITAL SIGNS: On admission, temperature 98.2 Fahrenheit, pulse 100, respirations 20, blood pressure 116/81, pulse ox 100%. HEENT: Oropharynx is clear. Mucous membranes are moist. No posterior pharyngeal erythema or exudate. NECK: Supple. No elevated JVD. Midline trachea. Normal thyroid. No carotid bruits. CHEST: Clear breath sounds anteriorly and posteriorly. HEART: Irregularly irregular rhythm, not tachycardic, no murmurs appreciated. ABDOMEN: Soft and nontender. NEUROLOGIC: He has no focal deficits. He is speaking fluently. He makes perfect sense to me. He has a normal affect. LYMPH: No adenopathy appreciated. SKIN: Dry and intact. ADMISSION DIAGNOSTIC STUDIES/LAB DATA: White blood cell count 7.2, hemoglobin 12.8, platelets 282. INR 1.41 (on DVT prophylaxis, Coumadin). Chemistries on 06/17/16 are entirely normal except for a modestly elevated glucose at 118, but a normal LFT panel, normal lactic acid, normal BNP, preserved protein level at 5.8 with albumin of 3.6 as well as normal triglyceride level at 150 ( nonfasting) and cholesterol level of 153 with an LDL component below 100. His urinalysis was negative. In terms of [facility] radiology, he had a brain CT in the emergency room at 1304 hours on June 17 and that showed chronic subfrontal abnormalities that we have described further in the MRI but no acute findings. He had a head CTA at 1414 hours, also on June 17, and that showed no evidence of hemodynamically significant carotid stenosis or intracranial large vessel intraluminal thrombus. 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 These were described in the body of the report. The patient had an EEG which was negative and then he also had a brain MRI on June 17 later in the evening at about 6 p.m., which showed no evidence for acute intracranial abnormality, but did show small bilateral areas of encephalomalacia present within the frontal lobes, most consistent with the areas of prior trauma or less likely infarcts, but unchanged from prior studies (previous workup for same problem by Dr. Villalobos). EKG showed normal sinus rhythm with old anterior infarct pattern with Q waves noted and abnormal ST-T wave changes, but no changes from previous tracings. IMPRESSION AND PLAN: Mr. Brito is a 66-year-old gentleman with episodes of aphasia concerning for transient ischemic attack versus seizure given he has got old areas of infarct or encephalomalacia in the frontal lobes which could be nidus for epileptiform activity. The patient was referred for observation status with serial neurologic tests and the brain MRI and EEG testing which were accomplished and did not reveal much new information. The patient is going to continue on anticoagulation in consideration of the possibility that this is atrial fibrillation, we would be treating that this way and the patient is currently not in atrial fibrillation. Likewise, he could have outpatient EEG monitoring to detect any seizure activities that coincide with the aphasic episodes, that could be arranged by [facility] next week. The patient is eager for discharge at this point. He is observation status and wishes to go home. He is feeling asymptomatic at this time. His INR will be followed in the outpatient setting and the goal INR is [address] Trinh Marcial is going to be doing this, but it might end up being Dr. Phillip, so both physicians are copied on this discharge summary. TIME SPENT: Total time taken to discharge Mr. Brito was 35 minutes, greater than half the time was spent going over the discharge instructions and speaking about the results during the hospitalization. CC: Dr. Trinh Marcial; Dr. Phillip* [id number]/[facility] #: [id number] [facility]
== END 2016-06-18 18:45 | disposition home or self-care (01) ==
LOC: ED 12:20 → MEDTELE 16:55
PROVIDERS: ADMIT Internal Medicine; ATTEND Internal Medicine
DX: R47.01 Aphasia (principal); R41.0 Disorientation, unspecified; I48.91 Unspecified atrial fibrillation; I10 Essential (primary) hypertension; I42.9 Cardiomyopathy, unspecified; Z79.01 Long term (current) use of anticoagulants; Z96.652 Presence of left artificial knee joint; Z82.3 Family history of stroke; Z87.891 Personal history of nicotine dependence; I25.10 Atherosclerotic heart disease of native coronary artery without angina pectoris; G93.89 Other specified disorders of brain; R06.02 Shortness of breath; I25.2 Old myocardial infarction
CPT/HCPCS: 36415; 70450; 70496; 70498; 70551; 71020; 80053; 80061; 81003; 83605; 83880; 84484; 85025; 85610; 93005; 95819; 99282; A9270-GY; G0378; Q9967

== ENCOUNTER 2018-03-27 14:24 | Emergency (ER) | payer OTHER ==
--- NOTE | 2018-03-27 14:52 | ED ---
Headache - HPI Summary HPI Summary: This patient is a 66 year old M presenting to [facility] c/o a headache when he wakes up for the last 5 days. He states he has to take meloxicam every morning at this relieves the pain. The patient rates the pain 4/10 in severity and describes it as only on the right side. He states it is centered in the occipital region and is not present when he goes to sleep. Additionally he has increased right sided facial numbness. He has had this numbness for 20 years due to a schwannoma. These sx are not worse with exertion. Patient reports intermittent right eye blurriness for the last couple days. He has also had intermittent visual loss in bilateral eyes that resolves after 20 minutes, this has been happening for 20 years. This has been dx as mild seizures. Pt also c/o ringing in bilateral ears, right worse that the left. He has punctured both ear drums in the past. Patient denies neck pain, trouble walking, and difficulty speaking. The patient was seen at Dr. Olmstead and sent here for further work up. He has had mitral valve repair in 1998 and is on Coumadin. - History Of Current Complaint Chief Complaint: EDHeadache Stated Complaint: HEADACHE,FACIAL NUMBNESS, EARS RINGING Time Seen by Provider: 03/27/18 14:35 Hx Obtained From: Patient Initially Headache Was: Initial Pain Scale(0-10)= - 4 Currently Pain Is: Current Pain Scale(0-10)= - 4 Timing: Constant Location of Headache: Occipital Associated Signs And Symptoms: Negative - neck pain, trouble walking, and difficulty speaking, Other (Noted In Comments) - intermittent right eye blurriness - Allergies/Home Medications Allergies/Adverse Reactions: Allergies Allergy/AdvReac Type Severity Reaction Status Date / Time niacin Allergy Rash Verified 03/27/18 17:03 ENVIRONMENTAL Allergy CONGESTION, Uncoded 05/29/16 16:23 COUGH PMH/Surg Hx/FS Hx/Imm Hx Endocrine/Hematology History: Reports: Hx Anticoagulant Therapy - Warfarin Denies: Hx Diabetes Cardiovascular History: Reports: Hx Atrial Fibrillation, Hx Coronary Artery Disease, Hx Hypertension, Hx Valvular Heart Disease Denies: Hx Pacemaker/ICD Respiratory History: Reports: Hx Sleep Apnea - MILD, NO CPAP OR BIPAP GI History: Reports: Hx Irritable Bowel, Hx Ulcer - HX OF YEARS AGO, Other GI Disorders - gall stones History: Reports: Hx Kidney Stones Denies: Hx Renal Disease Musculoskeletal History: Reports: Hx Arthritis - BACK, Hx Orthopedic Injury - LTKR 05/21/2016, ACL repair 2010 Denies: Hx Scoliosis Sensory History: Reports: Hx Contacts or Glasses - GLASSES Denies: Hx Hearing Aid Opthamlomology History: Reports: Hx Contacts or Glasses - GLASSES Neurological History: Reports: Hx Migraine - OCCASIONALLY, Hx Seizures - PETIT MAL - MOSTLY VERTIGO, LAST ONE LAST WEEK ([place]) Denies: Hx Headaches, Other Neuro Impairments/Disorders Psychiatric History: Denies: Hx Panic Disorder - Surgical History Surgery Procedure, Year, and Place: 1998-MITRAL VALVE REPAIR. 2010-ACL REPAIR LEFT KNEE. 2013 LSP DISCECTOMY L4/5. LEFT KNEE TRIMMED CARTILAGE 1986. LTKR- Hx Anesthesia Reactions: No - Immunization History Date of Tetanus Vaccine: 2015 Infectious Disease History: No Infectious Disease History: Denies: Traveled Outside the [place] in Last 30 Days - Family History Known Family History: Negative: Cardiac Disease, Diabetes - Social History Alcohol Use: Weekly Alcohol Amount: 2-4/WEEK Substance Use Type: Reports: None Smoking Status (MU): Former Smoker Type: Cigarettes Amount Used/How Often: 1 PACK PER WEEK FOR ABOUT 5-6 YEARS Length of Time of Smoking/Using Tobacco: 5-6 YEARS Have You Smoked in the Last Year: No Review of Systems Positive: Blurred Vision - see HPI ENT: Other - ringing in the ears. Musculoskeletal: Negative - neck pain Neurological: Negative - trouble walking, and difficulty speaking Positive: Headache, Numbness - see HPI All Other Systems Reviewed And Are Negative: Yes Physical Exam - Summary Physical Exam Summary: General: well-appearing, no pain distress Skin: warm, color reflects adequate perfusion, dry Head: normal Eyes: EOMI, JASON ENT: normal Neck: supple, nontender Respiratory: CTA, breath sounds present Cardiovascular: RRR Abdomen: soft, nontender Bowel: present Musculoskeletal: normal, strength/ROM intact Neurological: sensory/motor intact, A&O x3 Psychological: affect/mood appropriate Triage Information Reviewed: Yes Vital Signs On Initial Exam: Initial Vitals Temp Pulse Resp BP Pulse Ox 97.6 F 90 18 128/90 96 03/27/18 14:25 03/27/18 14:25 03/27/18 14:25 03/27/18 14:25 03/27/18 14:25 Vital Signs Reviewed: Yes Diagnostics - Vital Signs Vital Signs Temp Pulse Resp BP Pulse Ox 03/27/18 14:25 97.6 F 90 18 128/90 96 - Laboratory Result Diagrams: 03/27/18 15:03 03/27/18 15:03 Lab Statement: Any lab studies that have been ordered have been reviewed, and results considered in the medical decision making process. - CT CT ABD/Pelvis CT Interpretation Completed By: Radiologist Summary of CT Findings: NO ACUTE INTRACRANIAL PATHOLOGY. STABLE BIFRONTAL ENCEPHALOMALACIA. ED physician has reviewed this radiology report. CTA Neck CT Interpretation Completed By: Radiologist Summary of CT Findings: 1. NO INTERNAL CAROTID ARTERY STENOSIS BY [employer] CRITERIA. 2. NO ANEURYSM, VASCULAR MALFORMATION, OCCLUSION, OR STENOSIS OF THE VISUALIZED. INTRACRANIAL CIRCULATION. ED physician has reviewed this radiology report. - EKG 1539 Cardiac Rate: NL EKG Rhythm: Sinus Rhythm - at 73 BPM Summary of EKG Findings: LBBB Headache Course/Dx - Course Course Of Treatment: I discussed the lab results EKG and head CT and CT results with the patient. As his head CT was done I discussed the case with the neurologist on-call Dr. Hernandez. She recommended the CTA. With the present history of the headache the plan is to treat the headache pain and have him follow-up his primary care doctor. He has been using meloxicam but he is on Coumadin therefore he may end up using his hydrocodone for the headache. We discussed if he has any worsening of his condition weakness numbness difficulty with vision or speech or worsening headache he is to return to the emergency department. - Diagnoses Provider Diagnoses: Headache - Physician Notifications Discussed Care Of Patient With: Alfreda Hernandez Time Discussed With Above Provider: 15:54 Instructed by Provider To: Other - She inquired if there was any history neck manipulation? She also suggested getting a CTA and if thats negative the patient can be discharged Discharge - Sign-Out/Discharge Documenting (check all that apply): Patient Departure - Discharge Plan Condition: Stable Disposition: HOME Patient Education Materials: Acute Headache (ED) Referrals: Gabe Phillip MD [Primary Care Provider] - Additional Instructions: FOLLOW UP WITH YOUR DOCTOR. RETURN TO THE EMERGENCY DEPARTMENT FOR ANY WORSENING OF YOUR CONDITION; PAIN, WEAKNESS, NUMBNESS, DIFFICULTIES WITH VISION OR SPEECH OR QUESTIONS OR CONCERNS. - Charaning Disposition and Condition Condition: STABLE Disposition: Home - Attestation Statements Document Initiated by Scribe: Yes Documenting Scribe: Caio Sharma Provider For Whom Abebe is Documenting (Include Credential): Mayco Hagan MD Scribe Attestation: Caio Black , scribed for Mayco Hagan MD on 03/27/18 at 1736. Scribe Documentation Reviewed: Yes Provider Attestation: The documentation as recorded by the Caio matta accurately reflects the service I personally performed and the decisions made by meMayco MD Status of Scribe Document: Viewed
[2018-03-27 15:15] LABS: ABS Basophils 0.1 10^3/ul (0-0.2); ABS Eosinophils 0.1 10^3/ul (0-0.6); ABS Lymphocytes 0.8 10^3/ul (1.0-4.8); ABS Monocytes 0.6 10^3/ul (0-0.8); ABS Neutrophils 4.5 10^3/ul (1.5-7.7); ABS Nucleated RBC 0 10^3/ul; Eosinophil % 2.2 %; Hematocrit 46 % (42-52); Hemoglobin 15.3 g/dl (14.0-18.0); Mean Corpuscular HGB Conc 34 g/dl (31-36); Mean Corpuscular Hemoglobin 30 pg (27-31); Mean Corpuscular Volume 90 fL (80-94); Mean Platelet Volume 8.5 fL (7.4-10.4); Nucleated Red Blood Cells % 0.1; Platelet Count 224 10^3/ul (150-450); Red Blood Count 5.08 10^6/ul (4.00-5.40); Red Cell Distribution Width 14 % (10.5-15)
[2018-03-27 15:23] LABS: INR 3.01 (0.77-1.02)
[2018-03-27 15:40] LABS: Albumin 4.1 g/dL (3.2-5.2); BUN/Creatinine Ratio 15.6 (8-20); EGFR Non-African American 66.9 (>60); Globulin 2.1 g/dL (2-4); Total Bilirubin 0.7 mg/dL (0.2-1.0); Total Protein 6.2 g/dL (6.4-8.9)
[2018-03-27] MEDS ORDERED: NS 0.9% 1000 ML* 1,000 ML IV ONE (15:52)
[2018-03-27] MEDS ORDERED: Iohexol 350* (CONTRAST) 500 ML MDV IV ONE (16:00)
[2018-03-27 16:14] LABS: Potassium 4.4 mmol/L (3.5-5.0)
[2018-03-27 18:03] VITALS: BP 113/78
== END 2018-03-27 18:02 | disposition home or self-care (01) ==
LOC: ED 14:24
DX: R51 Headache (principal); I44.7 Left bundle-branch block, unspecified; Z79.01 Long term (current) use of anticoagulants; I25.10 Atherosclerotic heart disease of native coronary artery without angina pectoris; K58.9 Irritable bowel syndrome, unspecified; Z87.891 Personal history of nicotine dependence; G93.89 Other specified disorders of brain
CPT/HCPCS: 36415; 70450; 70496; 70498; 80053; 85025; 85610; 85730; 93005; 96361; 96374; 99282; Q9967

== ENCOUNTER 2020-04-15 22:39 | Observation (INO) ==
[2020-04-16 00:40] LABS: ABS Basophils 0.1 10^3/ul (0-0.2); ABS Eosinophils 0.1 10^3/ul (0-0.6); ABS Monocytes 0.7 10^3/ul (0-0.8); ABS Neutrophils 3.9 10^3/ul (1.5-7.7); Eosinophil % 2.5 %; Hematocrit 45 % (42-52); Hemoglobin 15.4 g/dL (14.0-18.0); Lymphocyte % 16.7 %; Mean Corpuscular HGB Conc 34 g/dL (31-36); Mean Corpuscular Hemoglobin 32 pg (27-31); Mean Corpuscular Volume 92 fL (80-94); Mean Platelet Volume 8.8 fL (7.4-10.4); Platelet Count 210 10^3/uL (150-450); Red Blood Count 4.87 10^6 /uL (4.18-5.48); Red Cell Distribution Width 13 % (10-15); White Blood Count 5.8 10^3/uL (3.5-10.8)
[2020-04-16 00:58] LABS: BUN/Creatinine Ratio 19.6 (8-20); Calcium 9.3 mg/dL (8.6-10.3); EGFR African American 97.9 (>60); EGFR Non-African American 80.9 (>60); Magnesium 1.9 mg/dL (1.9-2.7)
[2020-04-16 01:00] LABS: Troponin I 0.01 ng/mL (<0.03)
[2020-04-16] MEDS ORDERED: Magnesium Sulfate IV 1GM/100ML 1 GM/100 ML BAG IV ONE (01:24)
[2020-04-16 02:06] LABS: INR 1.89 (0.82-1.09)
[2020-04-16] MEDS: Enoxaparin 100 MG/ML SYR SUBCUT SCH ×2 (03:36→13:32)
[2020-04-16] MEDS ORDERED: Perflutren Lipid Microsphere 3 ML VIAL ONE (08:45)
[2020-04-16 20:12] VITALS: BP 140/83
== END 2020-04-16 20:22 | disposition short-term general hospital (02) ==
LOC: MEDTELE 22:39 → ED 22:39 → MEDTELE 04-16 03:52
PROVIDERS: ADMIT Internal Medicine; ATTEND Internal Medicine